=== PATIENT | male | born 1950 | race Caucasian/White ===

== ENCOUNTER 2021-05-06 06:40 | Outpatient (REF) | payer MEDICARE, SELFPAY ==
[2021-05-06 11:36] LABS: MANUAL DIFF FLAG NO
[2021-05-06 11:49] LABS: Basophils Percent Auto 0.4 % (0-2); Eosinophils Absolute Auto 0.2 X10*3/uL (0.0-0.4); Eosinophils Percent Auto 2.2 % (0-4); Hematocrit 40.8 % (42-52); Hemoglobin 13.6 g/dl (14.0-18.0); Imm Gran Abs Auto 0.03 X10*3/uL (0.00-0.03); Imm Gran Pct Auto 0.4 % (0.0-0.4); Lymphocytes Absolute Auto 2.8 X10*3/uL (1.2-4.9); Lymphocytes Percent Auto 37.6 % (20-40); Mean Corpuscular HGB Conc 33.3 g/dl (31.0-36.0); Mean Corpuscular Hemoglobin 30.1 pg (27.0-33.0); Mean Corpuscular Volume 90.3 fL (80-98); Mean Platelet Volume 9.8 fL (9.4-12.4); Monocytes Absolute Auto 0.7 X10*3/uL (0.1-1.2); Monocytes Percent Auto 9.4 % (2-11); Neutrophils Absolute Auto 3.7 X10*3/uL (2.0-8.3); Platelet Count 287 X10*3/uL (160-400); Red Blood Count 4.52 X10*6/uL (4.60-5.80); Red Cell Distribution Width 13.6 % (11.0-16.0); White Blood Count 7.3 X10*3/uL (4.8-10.8)
[2021-05-06 12:07] LABS: Alanine Aminotransferase 23 U/L (0-40); Alkaline Phosphatase 57 U/L (39-117); Anion Gap 13 (12-20); Aspartate Amino Transferase 22 U/L (5-37); Bilirubin Total 0.5 mg/dL (0.0-1.0); Blood Urea Nitrogen 19 mg/dL (9-16); Calcium 9.2 mg/dL (8.4-10.2); Carbon Dioxide 26 mmol/L (22-29); Chloride 107 mmol/L (96-108); Cholesterol 90 mg/dL; Estimated Glomerular Filt Rate > 60; Glucose Fasting 110 mg/dL (60-99); HDL Cholesterol 53 mg/dL; LDL Cholesterol Calculated 21 mg/dl; Potassium 4.6 mmol/L (3.3-5.1); Sodium 141 mmol/L (135-145); Total Protein 6.7 g/dL (6.5-8.0); Triglycerides 84 mg/dL
[2021-05-06 12:30] LABS: Thyroid Stimulating Hormone 2.84 uIU/mL (0.32-4.0)
[2021-05-06 13:24] LABS: Estimated Average Glucose 117 mg/dL; Hemoglobin A1C 138.1488 umol/L; Hemoglobin A1c % 5.7 %
== END 2021-05-06 06:41 | disposition home or self-care (01) ==
LOC: HO.HMGCLDS 06:40
PROVIDERS: PCP Internal Medicine; Visit Provider Internal Medicine
DX: Z00.00 Encounter for general adult medical examination without abnormal findings (principal); M10.9 Gout, unspecified; E11.9 Type 2 diabetes mellitus without complications; E03.9 Hypothyroidism, unspecified
CPT/HCPCS: 36415; 80053; 80061; 83036; 84443; 84550; 85025

== ENCOUNTER → 2021-07-22 10:26 | Outpatient (BNVA) | payer MEDICARE, SELFPAY | PROVIDERS: PCP Internal Medicine | DX: R35.1 Nocturia (principal) | CPT/HCPCS: 51798; 99202 ==

== ENCOUNTER 2021-12-09 06:04 | Outpatient (REF) | payer MEDICARE, SELFPAY ==
[2021-12-09 11:43] LABS: Estimated Average Glucose 117 mg/dL; Hemoglobin A1c % 5.7 %
[2021-12-09 11:48] LABS: Cholesterol 82 mg/dL; HDL Cholesterol 46 mg/dL; LDL Cholesterol Calculated 15 mg/dl; Triglycerides 107 mg/dL
[2021-12-09 11:55] LABS: Glucose Fasting 115 mg/dL (60-99)
[2021-12-09 12:10] LABS: Prostate Specific Antigen 0.76 ng/mL (<0.05-4.0); Thyroid Stimulating Hormone 3.03 uIU/mL (0.32-4.0)
== END 2021-12-09 06:05 | disposition home or self-care (01) ==
LOC: HO.HMGCLDS 06:04
PROVIDERS: PCP Internal Medicine; Visit Provider Internal Medicine
DX: E11.65 Type 2 diabetes mellitus with hyperglycemia (principal); E03.9 Hypothyroidism, unspecified; R35.1 Nocturia; Z12.5 Encounter for screening for malignant neoplasm of prostate
CPT/HCPCS: 36415; 80061; 82947; 83036; 84153; 84443

== ENCOUNTER → 2021-12-19 10:58 | Outpatient (BNVA) | payer MEDICARE, SELFPAY | PROVIDERS: PCP Internal Medicine; Visit Provider Urology | DX: R35.1 Nocturia (principal); R39.12 Poor urinary stream | CPT/HCPCS: 51798; 99212 ==

== ENCOUNTER 2022-04-16 06:49 | Outpatient (REF) | payer MEDICARE, SELFPAY ==
[2022-04-16 11:24] LABS: MANUAL DIFF FLAG NO
[2022-04-16 11:36] LABS: Basophils Absolute Auto 0.1 X10*3/uL (0.0-0.2); Basophils Percent Auto 0.7 % (0-2); Eosinophils Absolute Auto 0.1 X10*3/uL (0.0-0.4); Eosinophils Percent Auto 1.3 % (0-4); Hematocrit 40.9 % (42.0-52.0); Hemoglobin 13.7 g/dl (14.0-18.0); Imm Gran Abs Auto 0.02 X10*3/uL (0.00-0.03); Imm Gran Pct Auto 0.3 % (0.0-0.4); Lymphocytes Absolute Auto 2.5 X10*3/uL (1.2-4.9); Lymphocytes Percent Auto 35.9 % (20-40); Mean Corpuscular HGB Conc 33.5 g/dl (31.0-36.0); Mean Corpuscular Hemoglobin 30.6 pg (27.0-33.0); Mean Corpuscular Volume 91.5 fL (80.0-98.0); Mean Platelet Volume 10.6 fL (9.4-12.4); Monocytes Absolute Auto 0.7 X10*3/uL (0.1-1.2); Monocytes Percent Auto 9.4 % (2-11); Neutrophils Absolute Auto 3.7 x10*3/uL (2.0-8.3); Neutrophils Percent Auto 52.4 % (45-73); Platelet Count 266 X10*3/uL (160-400); Red Blood Count 4.47 X10*6/uL (4.60-5.80); Red Cell Distribution Width 12.8 % (11.0-16.0)
[2022-04-16 11:58] LABS: Alanine Aminotransferase 14 U/L (0-40); Albumin Level 3.9 g/dL (3.5-5.0); Alkaline Phosphatase 59 U/L (39-117); Anion Gap 15 (12-20); Aspartate Amino Transferase 15 U/L (5-37); Bilirubin Total 0.4 mg/dL (0.0-1.0); Blood Urea Nitrogen 20 mg/dL (9-16); Calcium 9.2 mg/dL (8.4-10.2); Carbon Dioxide 26 mmol/L (22-29); Chloride 106 mmol/L (96-108); Cholesterol 123 mg/dL; Estimated Glomerular Filt Rate > 60; Glucose Fasting 113 mg/dL (60-99); HDL Cholesterol 45 mg/dL; LDL Cholesterol Calculated 43 mg/dl; Potassium 4.8 mmol/L (3.3-5.1); Sodium 142 mmol/L (135-145); Total Protein 6.8 g/dL (6.5-8.0); Triglycerides 176 mg/dL
[2022-04-16 11:59] LABS: Thyroid Stimulating Hormone 2.23 uIU/mL (0.32-4.0)
== END 2022-04-16 06:50 | disposition home or self-care (01) ==
LOC: HO.HMGCLDS 06:49
PROVIDERS: PCP Internal Medicine; Visit Provider Internal Medicine
DX: Z00.00 Encounter for general adult medical examination without abnormal findings (principal); Z13.0 Encounter for screening for diseases of the blood and blood-forming organs and certain disorders involving the immune mechanism
CPT/HCPCS: 36415; 80053; 80061; 84443; 85025

== ENCOUNTER → 2022-06-24 10:29 | Outpatient (REF) | payer MEDICARE, SELFPAY ==
--- NOTE | 2022-06-24 11:13 | ECG_ITS ---
Test Reason : cp Blood Pressure : / mmHG Vent. Rate : 060 BPM Atrial Rate : 060 BPM P-R Int : 184 ms QRS Dur : 088 ms QT Int : 406 ms P-R-T Axes : 024 039 040 degrees QTc Int : 406 ms Normal sinus rhythm Normal ECG No previous ECGs available Referred By: José Miguel Walton Electronically Signed By:JIMENEZ POPE MD
== END ==
LOC: HO.CARD 10:29
PROVIDERS: Absent Provider Internal Medicine; PCP Internal Medicine; Visit Provider Urology
DX: R07.9 Chest pain, unspecified (principal); R39.12 Poor urinary stream; N32.81 Overactive bladder
CPT/HCPCS: 51798; 93005; 99212

== ENCOUNTER → 2022-11-11 14:09 | Outpatient (BNVA) | payer MEDICARE, SELFPAY | PROVIDERS: PCP Internal Medicine; Visit Provider Internal Medicine Cardiovascular Disease | DX: R00.2 Palpitations (principal) | CPT/HCPCS: 99202 ==

== ENCOUNTER → 2022-11-23 08:54 | Outpatient (REF) | payer MEDICARE, SELFPAY ==
--- NOTE | 2022-11-23 09:02 | CA_ITS ---
Transthoracic Echocardiogram Patient (Last, First, Middle): Oliver Childers, Gender: Male Date of : 1950 Age: 72 Procedure Date: 11/23/2022 Procedure Type: Transthoracic Echocardiogram Location: OP Height: 177.8 cm Weight: 108.86 kg BSA: 2.26 m2 Heart Rate: 56 bpm BP: 110 / 60 mmHg Preboarder: ADRIANNE Referring MD: Ej Keating MD Symptoms: R00.2 - Palpitations Study Quality: Fair ECG Rhythm: Bradycardia Conclusions: - The left ventricular systolic function is normal. The calculated ejection fraction is 62% by biplane method. - No obvious valvular pathology seen on this study. Findings Left Ventricle Normal left ventricular cavity size. The left ventricular systolic function is normal. The calculated ejection fraction is 62% by biplane method. There is no evidence of regional wall motion abnormalities. Diastolic function is normal for age. There is mild septal asymmetric hypertrophy. Right Ventricle Normal right ventricular cavity size and systolic function. Atria Both atria are normal in size. Aortic Valve There is a normal trileaflet aortic valve. There is mild calcification of the aortic valve. There is no aortic valve stenosis. There is trace (trivial) aortic valve regurgitation. Mitral Valve The mitral valve appears normal. There is no mitral valve regurgitation. There is no mitral valve stenosis. Pulmonic Valve The pulmonic valve was not well visualized. Tricuspid Valve There is no tricuspid valve regurgitation. Tricuspid regurgitation envelope is inadequate for calculation of right ventricular systolic pressure. Great Vessels The asc aorta is normal in size. Venous The inferior vena cava is normal in size and collapses greater than 50% with inspiration. Pericardium/Pleural There is no evidence of pericardial effusion. Prior Study Comparison No prior study available for comparison. Recommendations, Care & Conclusions No obvious valvular pathology seen on this study. Measurements 2D Linear Measurements IVSd: 1.13 0.6-0.9/0.6-1.0 cm LVIDd: 5.22 3.9-5.3/4.2-5.9 cm LVIDd Index: 2.31 2.4-3.2/2.2-3.1 cm/m2 LVIDs: 3.80 2.0-3.6 cm LVPWd: 0.81 0.7-1.1 cm LA Diam: 3.00 2.7-3.8/3.0-4.0 cm LAIDs Index: 1.33 1.5-2.3 cm/m2 LV Mass: 234.14 67-162/88-224 g LV Mass Index: 103.60 43-95/49-115 g/m2 LVOT Diam: 2.10 3.0+(-)1.3 cm 2D Systolic Function EF 4C: 61.50 >55% EF 2C: 63.00 >55% EF BiP: 61.90 >55% Mitral Valve MV Pk E: 0.70 MV PK A: 0.88 MV Decel Time: 313.00 E/A: 0.80 E'Lateral: 9.14 E'Medial: 7.72 E/E' Med: 9.00 E/E' Lat: 7.60 PHT: 92.00 MVA PHT: 2.[address] [place]: 2.23 Aortic Valve AoV Pk Ronaldo: 1.10 AoV Mn Ronaldo: 0.75 AoV VTI: 0.25 AoV Pk Grad: 5.00 Aov Mn Grad: 3.00 SALONI Cont.VTI: 2.69 LVOT LVOT Pk Ronaldo: 0.86 LVOT Mn Ronaldo: 0.55 LVOT VTI: 0.20 LVOT Pk Grad: 3.00 LVOT Mn Grad: 1.00 LVOT Diam: 2.10 LVOT Area: 3.46 Diastolic Function MV Pk E: 0.70 MV Pk A: 0.88 E/A: 0.80 E'Medial: 7.72 E/E' Med: 9.00 E' Laterial: 9.14 E/E' Lat: 7.60 Right Ventricle TAPSE (mm): 29.00 TVS' Ronaldo: 13.50 Tricuspid Valve RA Press: 3.00 Great Vessels Aorta Sinus of Valsalva: 4.00 2.0-3.5 cm Ao Asc: 3.50 2.1-3.4 cm Updated in Other Vendor System with Status of Final Binh Hayden MD electronically signed on 11/24/2022 12:30:46 PM with status of Final
--- NOTE | 2022-11-23 09:02 | HM_ITS ---
* Total monitoring time 7 days. * Underlying rhythm is sinus. Average ventricular rate 60/Min. Range 49 to 96/Min. * Rare supraventricular ectopy. Low burden. Brief runs noted. * Rare ventricular ectopy. Low burden. One short run of 6 beats at 112/min. * No pauses or AV blocks. * Patient markers used in association with sinus rhythm and PVC. Flutter in diary correlate with isolated PVC. Another episode of flutter correlates with sinus. Chest tightness correlates with sinus rhythm. MTDD
--- NOTE | 2022-11-23 09:02 | CA_ITS ---
Acquisition Time: 2022-11-23 10:06:59 Total Exercise Time: 00:06:38 Test Indications: CP Medications: ASA METOPROLOL LISINOPRIL HCTZ Protocol: ALFREDO Max HR: 116 BPM 78% of Pred: 147 BPM Max BP: 130/070 mmHG Max Work Load: 7.9 METS Exercise stress test with exercise 6 min 38 sec of Alfredo protocol, achieving 75% MPHR, with leg and arm fatigue and need to stop, without anginal symptoms, with one PAC, with normotensive response to exercise, without EKG changes of ischemia at achieved workload. Test reviewed with Dr Hayden Referred By: Ej Keating Overread By: GAY PAZ
== END ==
LOC: HO.CARD 08:54
PROVIDERS: Visit Provider Internal Medicine Cardiovascular Disease
DX: R00.2 Palpitations (principal)
CPT/HCPCS: 93017; 93242; 93306

== ENCOUNTER 2022-12-02 06:37 | Outpatient (REF) | payer MEDICARE, SELFPAY ==
[2022-12-02 11:55] LABS: Estimated Average Glucose 120 mg/dL; Hemoglobin A1c % 5.8 %
[2022-12-02 12:09] LABS: Thyroid Stimulating Hormone 2.43 uIU/mL (0.32-4.0)
[2022-12-02 12:34] LABS: Creatinine Urine 106.86 mg/dL; Microalbum/Creatinine Ratio Ur 10.2 ug/mg cr
== END 2022-12-02 06:38 | disposition home or self-care (01) ==
LOC: HO.HMGCLDS 06:37
PROVIDERS: PCP Internal Medicine; Visit Provider Internal Medicine
DX: E11.69 Type 2 diabetes mellitus with other specified complication (principal); E03.9 Hypothyroidism, unspecified; E66.01 Morbid (severe) obesity due to excess calories
CPT/HCPCS: 36415; 82043; 83036; 84443

== ENCOUNTER → 2022-12-22 09:51 | Outpatient (REF) | payer MEDICARE, SELFPAY ==
--- NOTE | ~2022-12-22 | NM_ITS ---
Lexiscan Myocardial perfusion study Indication: Chest pain, assess for coronary disease, ischemia Technique: The patient was brought in for a Lexiscan perfusion study on 12/22/2022 and was injected 0.4 mg of Lexiscan intravenously. Within a minute of this injection 40 mCi of sestamibi was given intravenously. Images were obtained using the SPECT gamma camera interlaced with the gating device. Images were obtained in supine position. Resting perfusion study was performed on 12/23/2022. Patient was administered 40 mCi of sestamibi intravenously at rest. Images were then obtained in supine position. Images were processed with the software and compared side to side in short axis, horizontal long axis and vertical long axis views. Total DLP 188mGy-cm. Findings: Raw acquisition reviewed. Arms by the patient's side. The stress perfusion study showed mildly diminished tracer uptake in the distal part of inferolateral wall. With CT attenuation correction, there is improvement suggestive of diaphragmatic attenuation artifact. The gated study shows normal LV systolic function with calculated LVEF of 56%. LV cavity is normal in size. The gated study shows normal wall thickening and contraction of segments. Resting study shows mildly diminished tracer uptake in the distal anterior wall. There is improvement with CT attenuation correction suggestive of soft tissue attenuation. Gating at rest reveals normal wall motion with ejection fraction at 55%. The findings are consistent with mild reversible distal inferolateral defect; probably artifactual. NM/NM cardiolite stress test Impression: 1. Myocardial perfusion imaging study shows no clear evidence of any ischemia or infarction. Probably normal perfusion. 2. Gated LVEF is 56% during stress; 55% during rest. 3. Transient ischemic dilatation not present. EKG component of the test reported separately.
--- NOTE | 2022-12-22 09:54 | CA_ITS ---
Acquisition Time: 2022-12-22 10:06:04 Total Exercise Time: 00:07:40 Test Indications: palpitations Medications: Protocol: ALFREDO Max HR: 117 BPM 79% of Pred: 147 BPM Max BP: 132/064 mmHG Max Work Load: 9.5 METS Exercise stress test with exercise 7 min 40 sec of Alfredo protocol, achieving 77% MPHR, with leg fatigue and sob requesting to stop, no chest discomfort, without arrythmia, with normotensive response to exercise, without ischemic changes at achieved workload. Treadmill placed in recovery and slowed to 1 MPH. Testing changed to a pharmacological stress test with Lexiscan injection, without anginal symptoms, without arrythmia, with normotensive response to injection, with EKG changes noted inferiorly and V3-V6 meeting criteria for ischemia - which was during the recovery period of exercise and post injection, with gradual improvement. Nuclear images pending. Test reviewed with Dr Cervantes Referred By: Laila Guadarrama Overread By: LAILA GUADARRAMA
== END ==
LOC: HO.CARD 09:51
PROVIDERS: PCP Internal Medicine; Visit Provider Nurse Practitioner Family
DX: R00.2 Palpitations (principal); R94.39 Abnormal result of other cardiovascular function study
CPT/HCPCS: 78452; 93017; A9500; J0280; J2785

== ENCOUNTER → 2022-12-31 09:35 | Outpatient (BNVA) | payer MEDICARE, SELFPAY | PROVIDERS: PCP Internal Medicine; Visit Provider Urology | DX: N32.81 Overactive bladder (principal); R39.12 Poor urinary stream; Z79.899 Other long term (current) drug therapy | CPT/HCPCS: 51798; 99212 ==

== ENCOUNTER → 2023-01-05 11:26 | Outpatient (BNVA) | payer MEDICARE, SELFPAY | PROVIDERS: PCP Internal Medicine; Referring Provider Internal Medicine; Visit Provider Internal Medicine Cardiovascular Disease | DX: I49.3 Ventricular premature depolarization (principal); I10 Essential (primary) hypertension; E78.5 Hyperlipidemia, unspecified; E66.9 Obesity, unspecified; Z68.35 Body mass index [BMI] 35.0-35.9, adult; Z79.82 Long term (current) use of aspirin | CPT/HCPCS: 99212 ==

== ENCOUNTER 2023-03-26 13:29 | Outpatient (AMB) | payer MEDICARE, SELFPAY ==
--- NOTE | 2023-03-26 13:32 | MHC.PC.OV ---
Vital Signs 03/26/23 13:33 Height 5 ft 10 in Weight 237 lb BMI 34.0 BP 120/70 Blood Pressure Location Lt brachial Position Sitting Pulse 62 Pulse Source Pulse Oximeter Pulse Oximetry (%) 97 Oxygen Delivery Method Room Air Intake Visit Reasons: Left hip pain Intake Note: Patient is here today for left hip pain Director Of Vocational Guidance Required: No Baggage Security Checker: Not Required per policy Accompanied by: Self / Same As Patient Allergies No Known Allergies Allergy (Verified 03/26/23 13:32) Medication List - Last Reconciled 03/26/23 by José Miguel Walton MD aspirin (Adult Low Dose Aspirin) 81 mg PO .weekly cholecalciferol (vitamin D3) 25 mcg PO .3 times a week coenzyme Q10 (Ultra CoQ10) 75 mg PO .weekly colchicine 0.6 mg PO DAILY PRN hydrochlorothiazide 25 mg PO DAILY levothyroxine 75 mcg PO DAILY lisinopril 20 mg PO BID metoprolol succinate ER 25 mg PO BID oxybutynin chloride 5 mg PO Q8H PRN terazosin 10 mg PO BEDTIME 90 days gazjroc-rekv-vpmpr-oreg-capryl 100 mg-150 mg- 50 mg-150 mg caps PO .weekly Tobacco use date assessed: 03/26/23 Fall risk assessment: 1 Fall in past year Last assessed Fall Risk: 03/26/23 Dental Screening Dental Screen Date: 03/26/23 Did you have a dental visit in the last 12 months?: Yes Did you have a dental problem in the last 6 months where you did not have access to dental care?: No Was dental information given to patient?: Patient has dentist HPI Left hip pain HPI Details pain left trochanteric bursa for 2 weeks [facility] Medical History (Updated 01/05/23 @ 12:12 by Ej Keating MD) Gout Hyperlipidemia Hypertension Hypothyroidism Obesity Surgical History (Updated 03/26/23 @ 13:39 by CHHAYA Delacruz) History of dental surgery History of hernia repair History of surgery of head Family History Mother No problems noted. Father No problems noted. Social History Housing: House Patient Tobacco Use Status: Former Tobacco user Tobacco use type: Cigarette e-Cigarette/Vaping Use: Never Used Second Hand Smoke Exposure: No service: No Current occupational status: retired Cognitive needs: No Hearing needs: No Vision needs: Yes Questionnaire PHQ-9 Over the last 2 weeks, how often have you been bothered by any of the following problems? Depression Screening Interpretation: Negative Source: Developed by Drs. Hermilo Martinez, Afsaneh Titus, Ed Bello and colleagues, with an educational kailey from [employer]. Thrive Questionnaire Date Thrive assessed: 12/21/22 Currently or been in a relationship where the following occur: no concerns reported DEYVI-7 AMB Questionnaire DEYVI-7 Date DEYVI - 7 assessed: 12/21/22 Source: Developed by Drs. Hermilo Martinez, Afsaneh Titus, Ed Bello and colleagues, with an educational kailey from [employer]. Review of Systems Const Denies chills, Denies headache(s) and Denies weight loss ENT Denies headache(s) Card Denies chest pain, Denies syncope, Denies irregular heart rhythm and Denies dyspnea Resp Denies chest congestion, Denies cough and Denies dyspnea GI Denies abdominal pain, Denies change in stool character, Denies nausea and Denies vomiting Musc Denies deformity and Denies joint swelling Neuro Denies syncope and Denies headache(s) Physical exam (Primary Care) Vital Signs: Last Vital Signs Pulse 62 03/26/23 13:33 BP 120/70 03/26/23 13:33 Pulse Ox 97 03/26/23 13:33 Oxygen Delivery Method Room Air 03/26/23 13:33 BMI result Body Mass Index 34.0 Tobacco/Smoking Status: Tobacco use Status Tobacco use date assessed 03/26/23 03/26/23 13:40 Patient Tobacco Use Status Former Tobacco user 03/26/23 13:40 Tobacco use type Cigarette 03/26/23 13:40 e-Cigarette/Vaping Use Never Used 03/26/23 13:40 Depression Screening Interpretation: Negative Thrive Assessment: Date of Thrive Assessment Date Thrive assessed 12/21/22 03/26/23 13:40 Currently or been in a relationship where the following occur: no concerns reported Const General: cooperative, comfortable and no acute distress Chest Chest palpation & inspection: normal inspection of the chest Resp Effort & Inspection: normal respiratory effort Auscultation: clear to auscultation bilaterally Percussion: percussion normal Cardio Jugular venous distension: no JVD Rate: regular rate Rhythm: regular rhythm Assessment and Plan Assessment & Plan (1) Trochanteric bursitis: Code(s): M70.60 - Trochanteric bursitis, unspecified hip Plan: xr ice Voltarin cream Salon pas Orders: Orders XR hip LT min 2V Today M25.559 - Pain in unspecified hip Coding Level of Care Code Est Pt Level 3 (73502) Diagnoses Trochanteric bursitis M70.60
[2023-03-26 13:33] VITALS: BP 120/70; PULSE 62; O2SAT 97; BMI 34.0
== END 2023-03-26 13:49 | disposition home or self-care (01) ==
PROVIDERS: PCP Internal Medicine; Visit Provider Internal Medicine
DX: M70.60 Trochanteric bursitis, unspecified hip (principal)
CPT/HCPCS: 99213

== ENCOUNTER 2023-03-26 13:54 | Outpatient (REF) | payer MEDICARE, SELFPAY ==
--- NOTE | ~2023-03-26 | XR_ITS ---
EXAMINATION: XR HIP, LEFT CLINICAL INFORMATION: Pain COMPARISON: None available. TECHNIQUE: Two views of the left hip. FINDINGS: No fracture. Alignment is anatomic. Hip joint space is maintained. Soft tissues are unremarkable. XR/XR hip LT min 2V IMPRESSION: Unremarkable left hip.
== END 2023-03-26 13:55 | disposition home or self-care (01) ==
LOC: HO.XRAY 13:54
PROVIDERS: Visit Provider Internal Medicine
DX: M25.552 Pain in left hip (principal)
CPT/HCPCS: 73502

== ENCOUNTER 2023-05-06 10:05 | Outpatient (AMB) | payer MEDICARE, SELFPAY ==
--- NOTE | 2023-05-06 10:13 | MHC.OFFVIS ---
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 No hx of injections. No hx of Injury. No hx of PT. Patient reports ongoing pain for many years. He states that his pain is on the lateral aspect of the hip. His pain is worse when he performs any movements that involve ?turning to the left?. He denies any numbness or tingling radiating down his leg. The patient states that he used to run for exercise. He has recently begun walking for exercise. He does not routinely stretch. Allergies No Known Allergies Allergy (Verified 05/06/23 10:16) Medication List - Last Reconciled 05/07/23 by Steven Romero MD aspirin (Adult Low Dose Aspirin) 81 mg PO .weekly cholecalciferol (vitamin D3) 25 mcg PO .3 times a week coenzyme Q10 (Ultra CoQ10) 75 mg PO .weekly colchicine (gout) 0.6 mg PO DAILY PRN hydrochlorothiazide 25 mg PO DAILY levothyroxine 75 mcg PO DAILY lisinopril 20 mg PO BID metoprolol succinate ER 25 mg PO BID nirmatrelvir-ritonavir 300 mg (150 mg x 2)-100 mg (Paxlovid) 3 ea PO PER PKG DIR 5 days oxybutynin chloride 5 mg PO Q8H PRN terazosin 10 mg PO BEDTIME 90 days juutsgc-wafg-wwwrv-oreg-capryl 100 mg-150 mg- 50 mg-150 mg caps PO .weekly [facility] Medical History (Updated 05/07/23 @ 07:29 by Steven Romero MD) Obesity Gout Hypothyroidism Hyperlipidemia Hypertension Surgical History (Updated 03/26/23 @ 13:39 by CHHAYA Delacruz) History of surgery of head History of dental surgery History of hernia repair Family History Mother No problems noted. Father No problems noted. Social History Housing: House Patient Tobacco Use Status: Former Tobacco user Tobacco use type: Cigarette e-Cigarette/Vaping Use: Never Used Second Hand Smoke Exposure: No service: No Current occupational status: retired Cognitive needs: No Hearing needs: No Vision needs: Yes Physical Exam Vital Signs: BMI result Body Mass Index 34.0 Const Other: Well-nourished well-developed very friendly male awake alert and oriented x3 in no acute distress Extrem Other: Bilateral lower extremity examination shows good capillary refill, no skin lesions noted, normal sensation light touch Left hip examination shows slightly decreased range of motion when compared to his right hip, tenderness over his bursa, mild discomfort with range of motion, negative straight leg raise test Results Reviewed Results Reviewed: X-rays of the patient's left hip show mild to moderate diffuse joint space narrowing, no acute bony abnormalities Assessment & Plan Assessment & Plan (1) Left hip pain: Code(s): M25.552 - Pain in left hip Plan: Mr. Childers presents with left hip pain most likely due to early degenerative joint disease as well as greater trochanteric bursitis and iliotibial band syndrome. I had a lengthy discussion with the patient regarding the treatment options. We will hold off on a cortisone injection at this time. The patient is encouraged to stretch before and after he goes for walks. He does not wish to go to formal physical therapy for now. He will follow up with me on an as-needed basis should his symptoms not plateau at an unacceptable level over the next few months. Feel free to call me at any time should questions regarding his orthopedic management arise. Thank you very much for asking me to see this very friendly gentleman. I spent 22 minutes in reviewing the patient's records and imaging studies, seeing the patient and documenting in the medical record. Coding Level of Care Code New Pt Level 2 (17086) Diagnoses Left hip pain M25.552
[2023-05-06 10:17] VITALS: BMI 34.0
== END 2023-05-06 10:46 | disposition home or self-care (01) ==
PROVIDERS: PCP Internal Medicine; Visit Provider Orthopaedic Surgery
DX: M25.552 Pain in left hip (principal)
CPT/HCPCS: 99202

== ENCOUNTER → 2023-05-06 10:05 | Outpatient (BNVA) | payer MEDICARE, SELFPAY | PROVIDERS: PCP Internal Medicine; Visit Provider Orthopaedic Surgery | DX: M25.552 Pain in left hip (principal) | CPT/HCPCS: 99202 ==

== ENCOUNTER 2023-06-17 08:56 | Outpatient (REF) | payer MEDICARE, SELFPAY ==
[2023-06-17 11:07] LABS: MANUAL DIFF FLAG NO
[2023-06-17 11:29] LABS: Basophils Absolute Auto 0.1 X10*3/uL (0.0-0.2); Basophils Percent Auto 0.7 % (0-2); Eosinophils Absolute Auto 0.1 X10*3/uL (0.0-0.4); Eosinophils Percent Auto 0.9 % (0-4); Hematocrit 38.6 % (42.0-52.0); Hemoglobin 12.9 g/dl (14.0-18.0); Imm Gran Abs Auto 0.02 X10*3/uL (0.00-0.03); Imm Gran Pct Auto 0.3 % (0.0-0.4); Lymphocytes Absolute Auto 2.3 X10*3/uL (1.2-4.9); Lymphocytes Percent Auto 34.3 % (20-40); Mean Corpuscular HGB Conc 33.4 g/dl (31.0-36.0); Mean Corpuscular Hemoglobin 30.6 pg (27.0-33.0); Mean Corpuscular Volume 91.5 fL (80.0-98.0); Mean Platelet Volume 10.3 fL (9.4-12.4); Monocytes Absolute Auto 0.6 X10*3/uL (0.1-1.2); Monocytes Percent Auto 8.6 % (2-11); Neutrophils Absolute Auto 3.7 x10*3/uL (2.0-8.3); Neutrophils Percent Auto 55.2 % (45-73); Platelet Count 243 X10*3/uL (160-400); Red Blood Count 4.22 X10*6/uL (4.60-5.80); Red Cell Distribution Width 13.6 % (11.0-16.0); White Blood Count 6.8 X10*3/uL (4.8-10.8)
[2023-06-17 11:32] LABS: Estimated Average Glucose 108 mg/dL; Hemoglobin A1c % 5.4 % (<6.0)
[2023-06-17 13:09] LABS: Alanine Aminotransferase 14 U/L (0-40); Albumin Level 3.9 g/dL (3.5-5.0); Alkaline Phosphatase 49 U/L (39-117); Anion Gap 12 (12-20); Aspartate Amino Transferase 17 U/L (5-37); Bilirubin Total 0.5 mg/dL (0.0-1.0); Blood Urea Nitrogen 24 mg/dL (9-16); Calcium 9.4 mg/dL (8.4-10.2); Carbon Dioxide 24 mmol/L (22-29); Chloride 106 mmol/L (96-108); Cholesterol 120 mg/dL (<200); Estimated Glomerular Filt Rate > 60; Glucose Fasting 98 mg/dL (60-99); HDL Cholesterol 51 mg/dL (>40); LDL Cholesterol Calculated 48 mg/dL (<100); Potassium 4.4 mmol/L (3.3-5.1); Sodium 138 mmol/L (135-145); Triglycerides 106 mg/dL (<150)
== END 2023-06-17 08:57 | disposition home or self-care (01) ==
LOC: HO.HMGCLDS 08:56
PROVIDERS: PCP Internal Medicine; Visit Provider Internal Medicine
DX: N28.9 Disorder of kidney and ureter, unspecified (principal); R73.9 Hyperglycemia, unspecified; D64.9 Anemia, unspecified; E78.5 Hyperlipidemia, unspecified
CPT/HCPCS: 36415; 80053; 80061; 83036; 85025

== ENCOUNTER 2023-06-23 09:59 | Outpatient (AMB) | payer MEDICARE, SELFPAY ==
--- NOTE | 2023-06-23 10:00 | A.OFFPC_ITS ---
Vital Signs 06/23/23 10:01 Height 5 ft 10 in Weight 241 lb BMI 34.6 BP 118/68 Blood Pressure Location Lt brachial Position Sitting Pulse 65 Pulse Source Pulse Oximeter Pulse Oximetry (%) 98 Oxygen Delivery Method Room Air Intake Visit Reasons: Annual Exam Heel Stainer Required: No Accompanied by: Self / Same As Patient Allergies No Known Allergies Allergy (Verified 06/23/23 10:01) Medication List - Last Reconciled 06/23/23 by José Miguel Walton MD aspirin (Adult Low Dose Aspirin) 81 mg PO .weekly cholecalciferol (vitamin D3) 25 mcg PO .3 times a week coenzyme Q10 (Ultra CoQ10) 75 mg PO .weekly colchicine (gout) 0.6 mg PO DAILY PRN hydrochlorothiazide 25 mg PO DAILY levothyroxine 75 mcg PO DAILY lisinopril 20 mg PO BID metoprolol succinate ER 25 mg PO BID oxybutynin chloride 5 mg PO Q8H PRN terazosin 10 mg PO BEDTIME 90 days icpqsqt-cpwm-lsnwk-oreg-capryl 100 mg-150 mg- 50 mg-150 mg caps PO .weekly Tobacco use date assessed: 03/26/23 Fall risk assessment: 1 Fall in past year Last assessed Fall Risk: 06/23/23 Dental Screening Dental Screen Date: 06/23/23 Did you have a dental visit in the last 12 months?: Yes Did you have a dental problem in the last 6 months where you did not have access to dental care?: No Was dental information given to patient?: Patient has dentist HPI Annual Exam HPI Details gout HTN and hypothyroidism; doing well on rx PFSH Medical History Obesity 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 Father No problems noted. Social History Housing: House Patient Tobacco Use Status: Former Tobacco user Tobacco use type: Cigarette e-Cigarette/Vaping Use: Never Used Second Hand Smoke Exposure: No service: No Current occupational status: retired Cognitive needs: No Hearing needs: No Vision needs: Yes Questionnaire PHQ-9 Over the last 2 weeks, how often have you been bothered by any of the following problems? 1. Little interest or pleasure in doing things: not at all 2. Feeling down, depressed, or hopeless: not at all 3. Trouble falling or staying asleep, or sleeping too much: not at all 4. Feeling tired or having little energy: not at all 5. Poor appetite or overeating: not at all 6. Feeling bad about yourself - or that you are a failure or have let yourself or your family down: not at all 7. Trouble concentrating on things, such as reading the newspaper or watching television: not at all 8. Moving or speaking so slowly that other people could have noticed. Or the opposite - being so fidgety or restless that you have been moving around a lot more than usual: not at all 9. Thoughts that you would be better off or of hurting yourself in some way: not at all Total score: 0 Depression Screening Interpretation: Negative Depression Screening Done: Yes [id number] - PHQ-9 Billing: Yes Source: Developed by Drs. Hermilo Martinez, Ed Paz and colleagues, with an educational kailey from [employer]). Thrive Questionnaire Date Thrive assessed: 12/21/22 AUDIT C Alcohol Use Questionnaire (AUDIT-C) 1. How often do you have a drink containing alcohol?: 4 or more times a week 2. How many drinks containing alcohol do you have on a typical day when you are drinking?: 1 or 2 3. How often do you have six or more drinks on one occasion?: Never Total Score: 4 Score Reviewed/Action Taken: Yes DEYVI-7 AMB Questionnaire DEYVI-7 Date DEYVI - 7 assessed: 12/21/22 Source: Developed by Drs. Hermilo Martinez, Ed Paz and colleagues, with an educational kailey from [employer]). Review of Systems Const Denies chills, Denies fatigue, Denies headache(s) and Denies weight loss Eyes Denies change in vision, Denies diplopia and Denies eye pain ENT Denies vertigo, Denies dizziness, Denies headache(s) and Denies nasal discharge Card Denies chest pain, Denies rapid heart rate and Denies dyspnea on exertion Resp Denies chest congestion, Denies cough, Denies pain with cough and Denies dyspnea on exertion GI Denies abdominal pain, Denies hematochezia and Denies change in bowel habits Musc Denies myalgias, Denies arthralgias and Denies joint swelling Skin/Breast Denies lesions and Denies unusual bruising Neuro Denies vertigo, Denies dizziness, Denies headache(s) and Denies focal weakness Endo Denies fatigue Physical exam (Primary Care) Vital Signs: Last Vital Signs Pulse 65 06/23/23 10:01 BP 118/68 06/23/23 10:01 Pulse Ox 98 06/23/23 10:01 Oxygen Delivery Method Room Air 06/23/23 10:01 BMI result Body Mass Index 34.6 obesity BMI Assessment/Plan discussion: High BMI High, discussed plan: lifestyle, weight reduction, dietary and physical activity Tobacco/Smoking Status: Tobacco use Status Tobacco use date assessed 03/26/23 06/23/23 10:05 Patient Tobacco Use Status Former Tobacco user 06/23/23 10:05 Tobacco use type Cigarette 06/23/23 10:05 e-Cigarette/Vaping Use Never Used 06/23/23 10:05 PHQ-9: PHQ-9 Score PHQ-9: Total score 0 06/23/23 10:05 Depression Screening Interpretation: Negative Thrive Assessment: Date of Thrive Assessment Date Thrive assessed 12/21/22 06/23/23 10:05 Advance Care Planning discussion: On file, no changes Forms completed: Health Care Proxy Const General: cooperative, healthy appearing and no acute distress Orientation/consciousness: oriented to person, oriented to place and oriented to time [facility] Head: Yes normal to inspection, Yes normocephalic and Yes atraumatic Mouth: Normal oral and palatal mucosa present and tongue normal Throat: Yes posterior oropharynx normal and Yes uvula midline Eyes General: appearance normal, both eyes and all related structures Neck Neck: Yes normal visual inspection, Yes full ROM and Yes no lymphadenopathy Thyroid: Thyroid normal Carotids: normal carotid upstroke Chest Chest palpation & inspection: normal inspection of the chest Resp Effort & Inspection: normal respiratory effort and able to speak in complete sentences Auscultation: clear to auscultation bilaterally Cardio Jugular venous distension: no JVD Palpation: normal PMI Rate: regular rate Rhythm: regular rhythm Heart sounds: S1 normal heart sound present and S2 normal heart sound present GI Inspection: Yes normal to inspection Palpation (GI): Soft to palpation and No hepatosplenomegaly present Auscultation: normal bowel sounds General: Yes no CVA tenderness Back/Spine/Pelvis Back: no CVA tenderness Skin General skin exam: no rashes or lesions noted Neuro General: oriented to person, oriented to place and oriented to time Extrem General: Yes normal to inspection and Yes full ROM Assessment and Plan Assessment & Plan (1) Physical exam: Code(s): Z00.00 - Encounter for general adult medical examination without abnormal findings Plan: stable; same rx (2) Hypertension: Code(s): I10 - Essential (primary) hypertension Plan: stable; same rx (3) Hypothyroidism: Code(s): E03.9 - Hypothyroidism, unspecified Plan: stable; same rx (4) Gout: Code(s): M10.9 - Gout, unspecified (5) Obesity: Code(s): E66.9 - Obesity, unspecified Plan: as above Coding Level of Care Code Est Pt Prev Care >65y(15479) Diagnoses Physical exam Z00.00 Hypertension I10 Hypothyroidism E03.9 Gout M10.9 Obesity E66.9 Additional Codes Vital Signs *Quality* - Advance Care Planning discussion: On file, no changes ([id number])
[2023-06-23 10:01] VITALS: BP 118/68; PULSE 65; O2SAT 98; BMI 34.6
== END 2023-06-23 10:18 | disposition home or self-care (01) ==
PROVIDERS: Visit Provider Internal Medicine
DX: Z00.00 Encounter for general adult medical examination without abnormal findings (principal); I10 Essential (primary) hypertension; E03.9 Hypothyroidism, unspecified; M10.9 Gout, unspecified; E66.9 Obesity, unspecified
CPT/HCPCS: 1123F; 99397

== ENCOUNTER 2023-07-01 09:48 | Outpatient (AMB) | payer MEDICARE, SELFPAY ==
--- NOTE | 2023-07-01 09:55 | MHC.OFFVIS ---
Intake Intake Visit Reasons: 6m follow up Intake Note: Patient is present for OAB/PVR Urology Medications: Terazosin Antibiotic Allergy: None Blood Thinner: Aspirin PVR: 0ml's Personal Care Service Provider Required: No Accompanied by: Self / Same As Patient Allergies No Known Allergies Allergy (Verified 07/01/23 10:00) HPI HPI Comments History of Present Illness Details Oliver is a pleasant male. He is a patient of Dr. Kraft. He seen for the following urologic conditions - lower urinary tract symptoms Continues with terazosin 10 mg Discussed timing medication Is using oxybutynin p.r.n. 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 Father No problems noted. Social History Housing: House Patient Tobacco Use Status: Former Tobacco user Tobacco use type: Cigarette e-Cigarette/Vaping Use: Never Used Second Hand Smoke Exposure: No service: No Current occupational status: retired Cognitive needs: No Hearing needs: No Vision needs: Yes Review of Systems Const Denies chills and Denies fever(s) Card Reports no additional complaints and Denies syncope Resp Denies cough GI Denies abdominal pain and Denies heartburn Reports as per HPI and Denies change in libido Neuro Denies syncope Psych Denies change in libido Endo Denies change in libido Physical Exam Const General: cooperative, healthy appearing, comfortable and no acute distress Orientation/consciousness: patient oriented x3 HEENT Face and sinus: Yes normal facial exam Mouth: moist mucous membranes Neck Neck: Yes normal visual inspection, Yes full ROM and Yes trachea midline Chest Chest palpation & inspection: normal inspection of the chest Resp Effort & Inspection: normal respiratory effort, able to speak in complete sentences and no respiratory distress GI Inspection: Yes normal to inspection Back/Spine/Pelvis Cervical Spine: normal cervical lordosis Thoracic/Lumbar Spine: thoracic and lumbar spine normal to inspection Skin General skin exam: no rashes or lesions noted Neuro General: patient oriented x3, gait normal, tone normal and moves all extremities Extrem General: Yes normal to inspection and Yes capillary refill normal Office Procedures Post Void Residual Post Residual Void Post Void Residual (PVR): 0 [id number] Void Residual by ultrasound Results AMB Urinalysis, Automated UA Leukoctes 0 Lidia/uL Last Edit by [employer] on 07/01/23 10:11 UA Nitrite Negative Last Edit by [employer] on 07/01/23 10:11 UA Urobilinogen 0.2 mg/dL Last Edit by [employer] on 07/01/23 10:11 UA Protein 0 mg/dL Last Edit by [employer] on 07/01/23 10:11 UA pH 6.0 Last Edit by [employer] on 07/01/23 10:11 UA Blood 0 Sriram/uL Last Edit by [employer] on 07/01/23 10:11 UA Specific [place] 1.020 Last Edit by [employer] on 07/01/23 10:11 UA Ketone Negative Last Edit by [employer] on 07/01/23 10:11 UA Bilirubin 0 mg/dL Last Edit by [employer] on 07/01/23 10:11 UA Glucose 0 mg/dL Last Edit by [employer] on 07/01/23 10:11 Results Reviewed Results Reviewed: Laboratory Last Values Urine pH (Auto) 6.0 07/01/23 10:01 Specific [place] (Auto) 1.020 07/01/23 10:01 Urine Protein (Auto) 0 mg/dL 07/01/23 10:01 Glucose (UA)(Auto) 0 mg/dL 07/01/23 10:01 Urine Ketones (Auto) Negative 07/01/23 10:01 Urine Blood (Auto) 0 Sriram/uL 07/01/23 10:01 Urine Nitrite (Auto) Negative 07/01/23 10:01 Urine Bilirubin (Auto) 0 mg/dL 07/01/23 10:01 Urine Urobilinogen (Auto) 0.2 mg/dL 07/01/23 10:01 Leukocyte Esterase (Auto) 0 Lidia/uL 07/01/23 10:01 Assessment & Plan Assessment & Plan (1) Overactive bladder: Code(s): N32.81 - Overactive bladder (2) Nocturia: Code(s): R35.1 - Nocturia Plan Trial tadalafil Orders: Orders AMB Urinalysis Automated Today Z13.9 - Encounter for screening, unspecified AMB Post Void Residual by ultrasound Today N32.81 - Overactive bladder Medications: New tadalafil 5 mg PO DAILY 90 tabs 0RF badder 90 days N32.81 - Overactive bladder Patient Instructions: Imaging studies, laboratory and physical exam results were discussed and reviewed in detail. No major barriers to patient understanding were identified. An opportunity to ask questions regarding the treatment plan was provided. All questions were answered. The patient expressed understanding and agreement with the above treatment plan. The patient is aware they should contact our office by phone for worsening of their current condition or the appearance of new urologic symptoms. Compliance is encouraged with any medications and followup testing that is ordered. It is a privilege to participate in the urologic care of your patient. If you have any questions or concerns regarding treatment for the above conditions, or other urologic issues, please do not hesitate to contact me. The office telephone contact is [phone]. This note is constructed using voice recognition software. While every effort has been made to ensure accuracy manager spa errors may have been included. Yours sincerely, Dr Maciej Shahid MD, ESTRE[facility] - Urology Providers of Expert, Compassionate Care for the Genitourinary System Coding Level of Care Code Est Pt Level 4 (73256) Diagnoses Overactive bladder N32.81 Nocturia R35.1 CPT Codes Post Residual Void - PVR CPT Code: 45252-Qimn Void Residual by ultrasound ([id number])
== END 2023-07-01 10:34 | disposition home or self-care (01) ==
PROVIDERS: Visit Provider Urology
DX: N32.81 Overactive bladder (principal); R35.1 Nocturia; Z13.9 Encounter for screening, unspecified
CPT/HCPCS: 99214

== ENCOUNTER → 2023-07-01 09:48 | Outpatient (BNVA) | payer MEDICARE, SELFPAY | PROVIDERS: Visit Provider Urology | DX: N32.81 Overactive bladder (principal); R35.1 Nocturia | CPT/HCPCS: 51798; 81003; 99212 ==

== ENCOUNTER 2023-08-20 13:27 | Outpatient (AMB) | payer MEDICARE, SELFPAY ==
--- NOTE | 2023-08-20 13:29 | MHC.PC.OV ---
Vital Signs 08/20/23 13:30 Height 5 ft 10 in Weight 247 lb BMI 35.4 BP 130/64 Blood Pressure Location Lt brachial Position Sitting Pulse 54 Pulse Source Pulse Oximeter Pulse Oximetry (%) 9 L Oxygen Delivery Method Room Air Intake Visit Reasons: ?Infection on back Radiologic Technology Teacher Required: No Pals Specialist: Not Required per policy Accompanied by: Self / Same As Patient Allergies No Known Allergies Allergy (Verified 08/20/23 13:30) Tobacco use date assessed: 03/26/23 Fall risk assessment: No Falls in past year Last assessed Fall Risk: 08/20/23 Dental Screening Dental Screen Date: 08/20/23 Did you have a dental visit in the last 12 months?: Yes Did you have a dental problem in the last 6 months where you did not have access to dental care?: No Was dental information given to patient?: Patient has dentist HPI ?Infection on back HPI Details abscess on upper back; needs I+D PFS Medical History Obesity 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 Father No problems noted. Social History Housing: House Patient Tobacco Use Status: Former Tobacco user Tobacco use type: Cigarette e-Cigarette/Vaping Use: Never Used Second Hand Smoke Exposure: No service: No Current occupational status: retired Cognitive needs: No Hearing needs: No Vision needs: Yes Questionnaire Thrive Questionnaire Date Thrive assessed: 12/21/22 DEYVI-7 AMB Questionnaire DEYVI-7 Date DEYVI - 7 assessed: 12/21/22 Source: Developed by Drs. Hermilo Martinez, Afsaneh Titus, Ed Bello and colleagues, with an educational kailey from [employer]. Review of Systems Const Denies chills, Denies headache(s) and Denies weight loss ENT Denies headache(s) Card Denies chest pain, Denies syncope, Denies irregular heart rhythm and Denies dyspnea Resp Denies chest congestion, Denies cough and Denies dyspnea GI Denies abdominal pain, Denies change in stool character, Denies nausea and Denies vomiting Musc Denies deformity and Denies joint swelling Neuro Denies syncope and Denies headache(s) Physical exam (Primary Care) Vital Signs: Last Vital Signs Pulse 54 08/20/23 13:30 BP 130/64 08/20/23 13:30 Pulse Ox 9 L 08/20/23 13:30 Oxygen Delivery Method Room Air 08/20/23 13:30 BMI result Body Mass Index 35.4 Tobacco/Smoking Status: Tobacco use Status Tobacco use date assessed 03/26/23 08/20/23 13:31 Patient Tobacco Use Status Former Tobacco user 08/20/23 13:31 Tobacco use type Cigarette 08/20/23 13:31 e-Cigarette/Vaping Use Never Used 08/20/23 13:31 Thrive Assessment: Date of Thrive Assessment Date Thrive assessed 12/21/22 08/20/23 13:31 Const General: cooperative, comfortable and no acute distress HENMT Head: Yes normal to inspection Eyes General: appearance normal, both eyes and all related structures Neck Neck: Yes normal visual inspection Skin Other: 2 cm abscess upper back Assessment and Plan Assessment & Plan (1) Abscess of skin: Code(s): L02.91 - Cutaneous abscess, unspecified Plan: rx and referral Orders: Referrals General Surgery Referral L02.91 - Cutaneous abscess, unspecified Medications: New cephalexin 250 mg PO Q6H 20 caps 0RF cephalexin 250 mg PO Q6H 20 caps 0RF Coding Level of Care Code Est Pt Level 3 (04282) Diagnoses Abscess of skin L02.91
[2023-08-20 13:30] VITALS: BP 130/64; PULSE 54; O2SAT 9; BMI 35.4
== END 2023-08-20 13:45 | disposition home or self-care (01) ==
PROVIDERS: PCP Internal Medicine; Visit Provider Internal Medicine
DX: L02.91 Cutaneous abscess, unspecified (principal)
CPT/HCPCS: 99213

== ENCOUNTER 2023-09-10 10:08 | Outpatient (AMB) | payer OTHER, SELFPAY ==
--- NOTE | 2023-09-10 10:10 | MHC.OFFVIS ---
Intake Vital Signs 09/10/23 10:17 Height 5 ft 10 in Weight 241 lb BMI 34.6 BP 110/69 Blood Pressure Location Lt brachial Position Sitting Pulse 68 Intake Visit Reasons: abscess upper back Intake Note: Patient referred by pcp Dr. Waltno for abscess on upper back. Patient c/o: enalrging. Patient on cephalexin. Tailor Women'S Garment Alteration Required: No Accompanied by: Self / Same As Patient Allergies No Known Allergies Allergy (Verified 09/10/23 10:18) HPI HPI Comments History of Present Illness Details Patient has a longstanding history of skin lesions and keratosis who presents with an upper back inflamed sebaceous cyst. He was given antibiotics with some improvement. Presents here for follow-up. Chart was reviewed and patient evaluate [facility] Medical History Obesity 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 Father No problems noted. Social History Housing: House Patient Tobacco Use Status: Former Tobacco user Tobacco use type: Cigarette e-Cigarette/Vaping Use: Never Used Second Hand Smoke Exposure: No service: No Current occupational status: retired Cognitive needs: No Hearing needs: No Vision needs: Yes Physical Exam Vital Signs: Last Vital Signs Pulse 68 09/10/23 10:17 BP 110/69 09/10/23 10:17 BMI result Body Mass Index 34.6 Back/Spine/Pelvis Other: Patient has a resolving inflamed upper back what appears to be sebaceous cyst. No evidence of fluctuance or abscess Assessment & Plan Assessment & Plan (1) Inflamed sebaceous cyst: Code(s): L72.3 - Sebaceous cyst Plan Current plan is to continue conservative therapy. Patient has been given local instructions well script antibiotics and he will see me as directed for follow-up or p.r.n.. All questions answered. Patient has progression of symptoms, he may require I&D. If the infective process has completely resolved, arrangements were made for elective excision of this in the office. Coding Level of Care Code New Pt Level 4 (15270) Diagnoses Inflamed sebaceous cyst L72.3
[2023-09-10 10:17] VITALS: BP 110/69; PULSE 68; BMI 34.6
== END 2023-09-10 10:30 | disposition home or self-care (01) ==
PROVIDERS: PCP Internal Medicine; Visit Provider Surgery
DX: L72.3 Sebaceous cyst (principal)
CPT/HCPCS: 99204

== ENCOUNTER → 2023-09-10 10:08 | Outpatient (BNVA) | payer OTHER, SELFPAY | PROVIDERS: PCP Internal Medicine; Visit Provider Surgery ==

== ENCOUNTER 2023-09-20 10:10 | Outpatient (AMB) | payer OTHER, SELFPAY ==
--- NOTE | 2023-09-20 10:12 | A.OFFVIS_ITS ---
Intake Vital Signs 09/20/23 10:18 Height 5 ft 10 in Weight 246 lb BMI 35.3 BP 125/60 Blood Pressure Location Lt brachial Position Sitting Pulse 61 Intake Visit Reasons: abscess upper back, follow up Intake Note: Patient here f/u abscess on upper back. Cephalexin course finished. Patient c/o: redness, tender to touch. 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 He has had marked improvement of his symptoms. He has had minimal drainage according to his who has been undergoing local wound care for him. He completed his antibiotic course. [facility] Medical History Obesity 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 Father No problems noted. Social History Housing: House Patient Tobacco Use Status: Former Tobacco user Tobacco use type: Cigarette e-Cigarette/Vaping Use: Never Used Second Hand Smoke Exposure: No service: No Current occupational status: retired Cognitive needs: No Hearing needs: No Vision needs: Yes Physical Exam Vital Signs: Last Vital Signs Pulse 61 09/20/23 10:18 BP 125/60 09/20/23 10:18 BMI result Body Mass Index 35.3 Back/Spine/Pelvis Other: Marked improvement of upper back infected sebaceous cyst. Erythema nearly resolved. On pressure, minimal output. Dressing applied. Assessment & Plan Assessment & Plan (1) Inflamed sebaceous cyst: Code(s): L72.3 - Sebaceous cyst Plan Patient has been given local instructions and if you would like to have this cyst excised, he will contact me within next 2-3 weeks time. He has any setbacks or concerns, he can call the office or follow-up as needed. All questions answered. Coding Level of Care Code Est Pt Level 4 (14189) Diagnoses Inflamed sebaceous cyst L72.3
[2023-09-20 10:18] VITALS: BP 125/60; PULSE 61; BMI 35.3
== END 2023-09-20 10:25 | disposition home or self-care (01) ==
PROVIDERS: PCP Internal Medicine; Visit Provider Surgery
DX: L72.3 Sebaceous cyst (principal)
CPT/HCPCS: 99214

== ENCOUNTER → 2023-09-20 10:10 | Outpatient (BNVA) | payer OTHER, SELFPAY | PROVIDERS: PCP Internal Medicine; Visit Provider Surgery ==

== ENCOUNTER 2023-10-05 10:07 | Outpatient (AMB) | payer OTHER, SELFPAY ==
--- NOTE | 2023-10-05 10:09 | MHC.OFFVIS ---
Intake Intake Visit Reasons: 3m follow up(OAB) Intake Note: Patient is Present for Telephone Follow Up Medication Review- Tadalafil Urology Med: Tadalafil, Terazosin. (Patient is on oxybutynin as needed) Antibiotic Allergy: None Blood Thinner: Aspirin Allergies No Known Allergies Allergy (Verified 10/05/23 10:10) Medication List - Last Reconciled 10/05/23 by Maciej Shahid MD aspirin (Adult Low Dose Aspirin) 81 mg PO .weekly cholecalciferol (vitamin D3) 25 mcg PO .3 times a week coenzyme Q10 (Ultra CoQ10) 75 mg PO .weekly colchicine 0.6 mg PO DAILY PRN hydrochlorothiazide 25 mg PO DAILY levothyroxine 75 mcg PO DAILY lisinopril 20 mg PO BID metoprolol succinate ER 25 mg PO BID oxybutynin chloride 5 mg PO Q8H PRN tadalafil 5 mg PO DAILY 90 days terazosin 10 mg PO BEDTIME 90 days ecdailu-ojld-bkiqd-oreg-capryl 100 mg-150 mg- 50 mg-150 mg caps PO .weekly HPI HPI Comments History of Present Illness Details Oliver is a pleasant male. He is a patient of Dr. Kraft. 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 Father No problems noted. Social History Housing: House Patient Tobacco Use Status: Former Tobacco user Tobacco use type: Cigarette e-Cigarette/Vaping Use: Never Used Second Hand Smoke Exposure: No service: No Current occupational status: retired Cognitive needs: No Hearing needs: No Vision needs: Yes Review of Systems Const All systems reviewed & are unremarkable except as noted in HPI and below Reports no additional complaints Resp Reports no additional complaints GI Reports no additional complaints Reports as per HPI Musc Reports no additional complaints Physical Exam Telemedicine evaluation Appropriate responses Regular breathing rate and rhythm HEENT Head: Yes normal to inspection Ears: hearing grossly normal bilaterally Eyes General: appearance normal, both eyes and all related structures Neck Neck: Yes normal visual inspection Chest Chest palpation & inspection: normal inspection of the chest Resp Effort & Inspection: normal respiratory effort and able to speak in complete sentences Assessment & Plan Assessment & Plan (1) Nocturia: Code(s): R35.1 - Nocturia (2) Weak urinary stream: Code(s): R39.12 - Poor urinary stream Plan Six-month follow-up Medications: Refilled tadalafil 5 mg PO DAILY 90 days 90 tabs 1RF badder N32.81 - Overactive bladder terazosin 10 mg PO BEDTIME 90 caps 1RF 90 days N32.81 - Overactive bladder Patient Instructions: Imaging studies, laboratory and physical exam results were discussed and reviewed in detail. No major barriers to patient understanding were identified. An opportunity to ask questions regarding the treatment plan was provided. All questions were answered. The patient expressed understanding and agreement with the above treatment plan. The patient is aware they should contact our office by phone for worsening of their current condition or the appearance of new urologic symptoms. Compliance is encouraged with any medications and followup testing that is ordered. It is a privilege to participate in the urologic care of your patient. If you have any questions or concerns regarding treatment for the above conditions, or other urologic issues, please do not hesitate to contact me. The office telephone contact is [phone]. This note is constructed using voice recognition software. While every effort has been made to ensure accuracy snuff packing machine operator errors may have been included. Yours sincerely, Dr Maciej Shahid MD, [facility] - Urology Providers of Expert, Compassionate Care for the Genitourinary System Telehealth Telehealth Location of provider rendering services: practice address Location of patient: address on file Patient Identification confirmed using: Name, : Yes Telehealth method: video Patient verbally consented to treatment: Yes Patient verbally consented to billing insurance company: Yes Patient informed of any privacy concerns related to visit: Yes Coding Level of Care Code Tele Est Pt Level 3 (41616) Diagnoses Nocturia R35.1 Weak urinary stream R39.12
== END 2023-10-05 10:43 | disposition home or self-care (01) ==
LOC: HO.HUSH 10:07
PROVIDERS: PCP Internal Medicine; Visit Provider Urology
DX: R35.1 Nocturia (principal); R39.12 Poor urinary stream
CPT/HCPCS: 99213

== ENCOUNTER → 2023-10-05 10:07 | Outpatient (BNVA) | payer OTHER, SELFPAY | PROVIDERS: PCP Internal Medicine; Visit Provider Urology ==

== ENCOUNTER 2023-11-22 11:24 | Outpatient (AMB) | payer OTHER, SELFPAY ==
[2023-11-22 11:28] VITALS: BP 128/62; PULSE 65; O2SAT 98; BMI 35.4
--- NOTE | 2023-11-22 11:28 | A.OFFPC_ITS ---
Vital Signs 11/22/23 11:28 Height 5 ft 10 in Weight 247 lb BMI 35.4 BP 128/62 Blood Pressure Location Lt brachial Position Sitting Pulse 65 Pulse Source Pulse Oximeter Pulse Oximetry (%) 98 Oxygen Delivery Method Room Air Intake Visit Reasons: infected abscess on back Crew Mess Attendant Required: No Patient Financial Services Specialist: Not Required per policy Accompanied by: Self / Same As Patient Allergies No Known Allergies Allergy (Verified 11/22/23 11:28) Medication List - Last Reconciled 11/22/23 by José Miguel Walton MD aspirin (Adult Low Dose Aspirin) 81 mg PO .weekly cholecalciferol (vitamin D3) 25 mcg PO .3 times a week coenzyme Q10 (Ultra CoQ10) 75 mg PO .weekly colchicine 0.6 mg PO DAILY PRN hydrochlorothiazide 25 mg PO DAILY levothyroxine 75 mcg PO DAILY lisinopril 20 mg PO BID metoprolol succinate ER 50 mg PO DAILY oxybutynin chloride 5 mg PO Q8H PRN tadalafil 5 mg PO DAILY 90 days terazosin 10 mg PO BEDTIME 90 days ayohwlod-slqr-cbbdt-oreg-capry 100 mg-150 mg- 50 mg-150 mg caps PO .weekly Tobacco use date assessed: 11/22/23 Fall risk assessment: 2 + Falls in past year Last assessed Fall Risk: 11/22/23 Dental Screening Dental Screen Date: 11/22/23 Did you have a dental visit in the last 12 months?: Yes Did you have a dental problem in the last 6 months where you did not have access to dental care?: No Was dental information given to patient?: Patient has dentist HPI infected abscess on back HPI Details recurrent abscess on back PFSH Medical History Obesity 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 Father No problems noted. Social History Housing: House Patient Tobacco Use Status: Former Tobacco user Tobacco use type: Cigarette e-Cigarette/Vaping Use: Never Used Second Hand Smoke Exposure: No service: No Current occupational status: retired Cognitive needs: No Hearing needs: No Vision needs: Yes Questionnaire PHQ-9 Over the last 2 weeks, how often have you been bothered by any of the following problems? 1. Little interest or pleasure in doing things: not at all 2. Feeling down, depressed, or hopeless: not at all 3. Trouble falling or staying asleep, or sleeping too much: not at all 4. Feeling tired or having little energy: not at all 5. Poor appetite or overeating: not at all 6. Feeling bad about yourself - or that you are a failure or have let yourself or your family down: not at all 7. Trouble concentrating on things, such as reading the newspaper or watching television: not at all 8. Moving or speaking so slowly that other people could have noticed. Or the opposite - being so fidgety or restless that you have been moving around a lot more than usual: not at all 9. Thoughts that you would be better off or of hurting yourself in some way: not at all Total score: 0 Depression Screening Interpretation: Negative Depression Screening Done: Yes 97659 - PHQ-9 Billing: Yes Source: Developed by Drs. Hermilo Martinez, Afsaneh Titus, Ed Bello and colleagues, with an educational kailey from [email or web address]. Thrive Questionnaire Date Thrive assessed: 11/22/23 I am a: Patient What is your living situation today?: I have a steady place to live Within the past 12 months, did the food you bought not last and you didn't have the money to get more?: Never true Within the past 12 months, did you worry whether your food would run out before you got money to buy more?: Never true Do you have trouble paying for medicines?: No Do you have trouble getting transportation to medical appointments?: No Do you have trouble paying your heating and electricity bill?: No Do you have trouble taking care of your child, family member or friend?: No Do you have trouble with day-to-day activities such as bathing, preparing meals, shopping, managing finances, etc.?: No Are you currently unemployed and looking for a job?: No Are you interested in more education?: No Please select the resources that you would like help with: None THRIVE Score: 0 AUDIT C Alcohol Use Questionnaire (AUDIT-C) 1. How often do you have a drink containing alcohol?: 4 or more times a week 2. How many drinks containing alcohol do you have on a typical day when you are drinking?: 1 or 2 3. How often do you have six or more drinks on one occasion?: Never Total Score: 4 Score Reviewed/Action Taken: Yes DEYVI-7 AMB Questionnaire DEYVI-7 Date DEYVI - 7 assessed: 11/22/23 Feeling nervous, anxious, or on edge: 0 = Not at all Not being able to stop or control worryin = Not at all Worrying too much about different things: 0 = Not at all Trouble relaxin = Not at all Being so restless that it is hard to sit still: 0 = Not at all Becoming easily annoyed or irritable: 0 = Not at all Feeling afraid as if something awful might happen: 0 = Not at all Total DEYVI-7 score (0-4 normal; 5-9 mild; 10-14 moderate; 15-21 severe): 0 Source: Developed by Drs. Hermilo Martinez, Afsaneh Titus, Ed Bello and colleagues, with an educational kailey from [email or web address]. Review of Systems Const Denies chills, Denies headache(s) and Denies weight loss ENT Denies headache(s) Card Denies chest pain, Denies syncope, Denies irregular heart rhythm and Denies dyspnea Resp Denies chest congestion, Denies cough and Denies dyspnea GI Denies abdominal pain, Denies change in stool character, Denies nausea and Denies vomiting Musc Denies deformity and Denies joint swelling Neuro Denies syncope and Denies headache(s) Physical exam (Primary Care) Vital Signs: Last Vital Signs Pulse 65 11/22/23 11:28 BP 128/62 11/22/23 11:28 Pulse Ox 98 11/22/23 11:28 Oxygen Delivery Method Room Air 11/22/23 11:28 BMI result Body Mass Index 35.4 Tobacco/Smoking Status: Tobacco use Status Tobacco use date assessed 11/22/23 11/22/23 11:29 Patient Tobacco Use Status Former Tobacco user 11/22/23 11:29 Tobacco use type Cigarette 03/25/24 11:29 e-Cigarette/Vaping Use Never Used 11/22/23 11:29 PHQ-9: PHQ-9 Score PHQ-9: Total score 0 11/22/23 11:29 Depression Screening Interpretation: Negative Thrive Assessment: Date of Thrive Assessment Date Thrive assessed 11/22/23 11/22/23 11:29 Const General: cooperative, comfortable, no acute distress and alert Neck Neck: Yes no lymphadenopathy Thyroid: Thyroid normal Resp Effort & Inspection: normal respiratory effort Auscultation: clear to auscultation bilaterally Percussion: percussion normal Cardio Jugular venous distension: no JVD Palpation: normal PMI Rate: regular rate Rhythm: regular rhythm Heart sounds: S1 normal heart sound present and S2 normal heart sound present GI Inspection: Yes normal to inspection Palpation (GI): No hepatosplenomegaly present Skin Other: sebaceous cyst on back Extrem General: Yes no clubbing, cyanosis or edema Assessment and Plan Assessment & Plan Orders: Referrals General Surgery Referral L72.3 - Sebaceous cyst Coding Level of Care Code Est Pt Level 3 (50459)
== END 2023-11-22 11:49 | disposition home or self-care (01) ==
PROVIDERS: PCP Internal Medicine; Visit Provider Internal Medicine
DX: L72.3 Sebaceous cyst (principal)
CPT/HCPCS: 99213

== ENCOUNTER 2023-11-30 13:50 | Outpatient (AMB) | payer OTHER, SELFPAY ==
--- NOTE | 2023-11-30 14:06 | MHC.OFFVIS ---
Intake Vital Signs 11/30/23 14:10 Height 5 ft 10 in Weight 248 lb BMI 35.6 BP 142/65 H Blood Pressure Location Lt brachial Pulse 67 Intake Visit Reasons: infected abscess of back Intake Note: Pt is seen in office for evaluation and treatment of an abscess of the back. Pt c/o: was on antbx on Aug & Sep and the problem persist, pus, bloody discharge, painful, irritated, onset 07/2023, currently stable, would like to have it surgically removed Fran:09/20/23 Prototype Deicer Assembler Required: No Accompanied by: Self / Same As Patient Allergies No Known Allergies Allergy (Verified 11/30/23 14:08) Medication List - Last Reconciled 11/30/23 by Johann Martins MD aspirin (Adult Low Dose Aspirin) 81 mg PO .weekly cholecalciferol (vitamin D3) 25 mcg PO .3 times a week coenzyme Q10 (Ultra CoQ10) 75 mg PO .weekly colchicine 0.6 mg PO DAILY PRN hydrochlorothiazide 25 mg PO DAILY levothyroxine 75 mcg PO DAILY lisinopril 20 mg PO BID metoprolol succinate ER 50 mg PO DAILY oxybutynin chloride 5 mg PO Q8H PRN tadalafil 5 mg PO DAILY 90 days terazosin 10 mg PO BEDTIME 90 days hxwccaab-jkaq-ndfgq-oreg-capry 100 mg-150 mg- 50 mg-150 mg caps PO .weekly HPI HPI Comments History of Present Illness Details 73-year-old male patient returning for re-evaluation of a epidermal inclusion cyst of the midback. This is been infected multiple times over the last several months. He has undergone multiple courses of antibiotics and now reports that the lesion is decreased in size and is no longer draining. He would like to have the lesion excised to prevent further infection. He denies any fever or chills but does report discomfort when sitting or laying down. [facility], [facility] Medical History Obesity 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 Father No problems noted. Social History Housing: House Patient Tobacco Use Status: Former Tobacco user Tobacco use type: Cigarette e-Cigarette/Vaping Use: Never Used Second Hand Smoke Exposure: No service: No Current occupational status: retired Cognitive needs: No Hearing needs: No Vision needs: Yes Review of Systems Const All systems reviewed & are unremarkable except as noted in HPI and below Physical Exam Vital Signs: Last Vital Signs Pulse 67 11/30/23 14:10 BP 142/65 H 11/30/23 14:10 BMI result Body Mass Index 35.6 Const General: no acute distress Nutritional Appearance: well nourished Orientation/consciousness: patient oriented x3 Limitations: no limitations HEENT Head: Yes normocephalic and Yes atraumatic GI Inspection: Yes normal to inspection Back/Spine/Pelvis Back/spine/pelvis image: 1. 1.5 cm epidermal inclusion cyst of the midback with slightly reddened skin but no evidence of fluctuance at this time. Minimal tenderness to palpation. Skin General skin exam: no rashes or lesions noted Neuro General: patient oriented x3 Extrem General: Yes no clubbing, cyanosis or edema Assessment & Plan Assessment & Plan (1) Inflamed sebaceous cyst: Code(s): L72.3 - Sebaceous cyst Plan 73-year-old male patient with a previously infected epidermal inclusion cyst of the back. The lesion has now decreased in size and is no longer infected. I recommended an excision under local anesthesia as an office based procedure. After discussion of the procedure, risks, and alternatives, he consents to the procedure. Coding Level of Care Code Est Pt Level 3 (18269) Diagnoses Inflamed sebaceous cyst L72.3
[2023-11-30 14:10] VITALS: BP 142/65; PULSE 67; BMI 35.6
== END 2023-11-30 14:26 | disposition home or self-care (01) ==
PROVIDERS: PCP Internal Medicine; Visit Provider Surgery
DX: L72.3 Sebaceous cyst (principal)
CPT/HCPCS: 99213

== ENCOUNTER → 2023-11-30 13:50 | Outpatient (BNVA) | payer OTHER, SELFPAY | PROVIDERS: PCP Internal Medicine; Visit Provider Surgery ==

== ENCOUNTER 2023-12-15 07:44 | Outpatient (REF) | payer OTHER, SELFPAY ==
[2023-12-15 10:20] LABS: MANUAL DIFF FLAG NO
[2023-12-15 10:51] LABS: Basophils Percent Auto 0.4 % (0-2); Eosinophils Absolute Auto 0.1 X10*3/uL (0.0-0.4); Eosinophils Percent Auto 1.6 % (0-4); Hematocrit 38.8 % (42.0-52.0); Hemoglobin 13.3 g/dl (14.0-18.0); Imm Gran Abs Auto 0.01 X10*3/uL (0.00-0.03); Imm Gran Pct Auto 0.1 % (0.0-0.4); Lymphocytes Absolute Auto 2.6 X10*3/uL (1.2-4.9); Lymphocytes Percent Auto 34.7 % (20-40); Mean Corpuscular HGB Conc 34.3 g/dl (31.0-36.0); Mean Corpuscular Hemoglobin 31.4 pg (27.0-33.0); Mean Corpuscular Volume 91.5 fL (80.0-98.0); Mean Platelet Volume 10.5 fL (9.4-12.4); Monocytes Absolute Auto 0.6 X10*3/uL (0.1-1.2); Neutrophils Absolute Auto 4.2 x10*3/uL (2.0-8.3); Neutrophils Percent Auto 55.2 % (45-73); Platelet Count 240 X10*3/uL (160-400); Red Blood Count 4.24 X10*6/uL (4.60-5.80); Red Cell Distribution Width 13.6 % (11.0-16.0); White Blood Count 7.5 X10*3/uL (4.8-10.8)
[2023-12-15 11:25] LABS: Alanine Aminotransferase 13 U/L (0-40); Albumin Level 3.8 g/dL (3.5-5.0); Alkaline Phosphatase 41 U/L (39-117); Anion Gap 10 (12-20); Aspartate Amino Transferase 18 U/L (5-37); Bilirubin Total 0.4 mg/dL (0.0-1.0); Blood Urea Nitrogen 19 mg/dL (9-16); Calcium 9.2 mg/dL (8.4-10.2); Carbon Dioxide 27 mmol/L (22-29); Chloride 107 mmol/L (96-108); Cholesterol 114 mg/dL (<200); Estimated Glomerular Filt Rate > 60; Glucose Fasting 114 mg/dL (60-99); HDL Cholesterol 46 mg/dL (>40); LDL Cholesterol Calculated 48 mg/dL (<100); Potassium 4.6 mmol/L (3.3-5.1); Sodium 139 mmol/L (135-145); Total Protein 6.8 g/dL (6.5-8.0); Triglycerides 101 mg/dL (<150)
[2023-12-15 11:42] LABS: Thyroid Stimulating Hormone 1.91 uIU/mL (0.32-4.0)
== END 2023-12-15 07:45 | disposition home or self-care (01) ==
LOC: HO.HMGCLDS 07:44
PROVIDERS: PCP Internal Medicine; Visit Provider Internal Medicine
DX: N28.9 Disorder of kidney and ureter, unspecified (principal); E78.5 Hyperlipidemia, unspecified; E03.9 Hypothyroidism, unspecified; D64.9 Anemia, unspecified
CPT/HCPCS: 36415; 80053; 80061; 84443; 85025

== ENCOUNTER 2023-12-22 09:57 | Outpatient (AMB) | payer OTHER, SELFPAY ==
[2023-12-22 10:00] VITALS: BP 112/66; PULSE 67; O2SAT 98; BMI 35.4
--- NOTE | 2023-12-22 10:00 | A.OFFPC_ITS ---
Vital Signs 12/22/23 10:00 Height 5 ft 10 in Weight 247 lb BMI 35.4 BP 112/66 Blood Pressure Location Lt brachial Position Sitting Pulse 67 Pulse Source Pulse Oximeter Pulse Oximetry (%) 98 Oxygen Delivery Method Room Air Intake Visit Reasons: 6M Follow up Clinical Account Liaison Required: No Pilot Boat Deckhand: Not Required per policy Accompanied by: Self / Same As Patient Allergies No Known Allergies Allergy (Verified 12/22/23 10:00) Medication List - Last Reconciled 12/22/23 by José Miguel Walton MD aspirin (Adult Low Dose Aspirin) 81 mg PO .weekly cholecalciferol (vitamin D3) 25 mcg PO .3 times a week coenzyme Q10 (Ultra CoQ10) 75 mg PO .weekly colchicine 0.6 mg PO DAILY PRN hydrochlorothiazide 25 mg PO DAILY levothyroxine 75 mcg PO DAILY lisinopril 20 mg PO BID metoprolol succinate ER 50 mg PO DAILY oxybutynin chloride 5 mg PO Q8H PRN tadalafil 5 mg PO DAILY 90 days terazosin 10 mg PO BEDTIME 90 days wjnslnfc-iier-crxpj-oreg-capry 100 mg-150 mg- 50 mg-150 mg caps PO .weekly Tobacco use date assessed: 11/22/23 Fall risk assessment: 2 + Falls in past year Last assessed Fall Risk: 12/22/23 Dental Screening Dental Screen Date: 11/22/23 HPI 6M Follow up HPI Details hypertension on rx; doing well; compliant [facility] Medical History Obesity 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 Father No problems noted. Social History Housing: House Patient Tobacco Use Status: Former Tobacco user Tobacco use type: Cigarette e-Cigarette/Vaping Use: Never Used Second Hand Smoke Exposure: No service: No Current occupational status: retired Cognitive needs: No Hearing needs: No Vision needs: Yes (glasses) Questionnaire Thrive Questionnaire Date Thrive assessed: 11/22/23 DEYVI-7 AMB Questionnaire DEYVI-7 Date DEYVI - 7 assessed: 11/22/23 Source: Developed by Drs. Hermilo Martinez, Afsaneh Titus, Ed Bello and colleagues, with an educational kailey from [employer]. Review of Systems Const Denies chills, Denies headache(s) and Denies weight loss ENT Denies headache(s) Card Denies chest pain, Denies syncope, Denies irregular heart rhythm and Denies dyspnea Resp Denies chest congestion, Denies cough and Denies dyspnea GI Denies abdominal pain, Denies change in stool character, Denies nausea and Denies vomiting Musc Denies deformity and Denies joint swelling Neuro Denies syncope and Denies headache(s) Physical exam (Primary Care) Vital Signs: Last Vital Signs Pulse 67 12/22/23 10:00 BP 112/66 12/22/23 10:00 Pulse Ox 98 12/22/23 10:00 Oxygen Delivery Method Room Air 12/22/23 10:00 BMI result Body Mass Index 35.4 Tobacco/Smoking Status: Tobacco use Status Tobacco use date assessed 11/22/23 12/22/23 10:01 Patient Tobacco Use Status Former Tobacco user 12/22/23 10:01 Tobacco use type Cigarette 12/22/23 10:01 e-Cigarette/Vaping Use Never Used 12/22/23 10:01 Thrive Assessment: Date of Thrive Assessment Date Thrive assessed 11/22/23 12/22/23 10:01 Const General: cooperative, comfortable, no acute distress and alert Neck Neck: Yes no lymphadenopathy Thyroid: Thyroid normal Resp Effort & Inspection: normal respiratory effort Auscultation: clear to auscultation bilaterally Percussion: percussion normal Cardio Jugular venous distension: no JVD Palpation: normal PMI Rate: regular rate Rhythm: regular rhythm Heart sounds: S1 normal heart sound present and S2 normal heart sound present GI Inspection: Yes normal to inspection Palpation (GI): No hepatosplenomegaly present Skin General skin exam: no rashes or lesions noted Extrem General: Yes no clubbing, cyanosis or edema Assessment and Plan Assessment & Plan (1) Hypertension: Code(s): I10 - Essential (primary) hypertension Plan: stable; same rx Orders: Orders Lipid Panel Today Z13.220 - Encounter for screening for lipoid disorders Complete Blood Count Auto Diff Today Z13.0 - Encounter for screening for diseases of the blood and blood-forming organs and certain disorders involving the immune mechanism Comprehensive [place]. Panel Fast Today Z13.9 - Encounter for screening, unspecified Thyroid Stimulating Hormone Today Z13.29 - Encounter for screening for other suspected endocrine disorder Coding Level of Care Code Est Pt Level 3 (74792) Diagnoses Hypertension I10
== END 2023-12-22 10:48 | disposition home or self-care (01) ==
PROVIDERS: PCP Internal Medicine; Visit Provider Internal Medicine
DX: I10 Essential (primary) hypertension (principal)
CPT/HCPCS: 99213

== ENCOUNTER 2023-12-24 10:25 | Outpatient (AMB) | payer OTHER, SELFPAY ==
--- NOTE | 2023-12-24 10:28 | A.OFFVIS_ITS ---
Vital Signs 12/24/23 10:42 Height 5 ft 10 in Weight 246 lb 8 oz BMI 35.4 BP 115/58 L Blood Pressure Location Lt brachial Position Sitting Pulse 60 Intake Visit Reasons: Excision infected abscess of back Intake Note: Patient is seen for office procedure, excision of back cyst. Pt c/o: here for removal, no changes Committee Member Required: No Accompanied by: Self / Same As Patient Allergies No Known Allergies Allergy (Verified 12/24/23 10:29) HPI Comments Details: Patient returns today for excision of previously infected cyst of the back. [facility] Medical History Obesity 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 Father No problems noted. Social History Housing: House Patient Tobacco Use Status: Former Tobacco user Tobacco use type: Cigarette e-Cigarette/Vaping Use: Never Used Second Hand Smoke Exposure: No service: No Current occupational status: retired Cognitive needs: No Hearing needs: No Vision needs: Yes (glasses) Office Procedures Excision Details: Preoperative diagnosis: Epidermal inclusion cyst of back Postoperative diagnosis: Same Procedure: Excision of epidermal inclusion cyst of back Surgeon: Johann Martins MD Anesthesia: Local Indications for procedure: 73-year-old male patient with a previous history of infected sebaceous cyst of the back now presenting for excision to prevent further infections. Operative findings: 1.5 cm sebaceous cyst of the midback, midline with no evidence of ongoing infection. Specimen: Epidermal inclusion cyst midback Estimated blood loss: 2 mL Complications: None Procedure details: Patient was brought to the procedure room and placed in a left lateral decubitus position. The site of surgery was confirmed by the patient and informed consent assured. Skin was then prepped with Betadine and draped in a sterile fashion. Local anesthesia was then infiltrated around the lesion and an elliptical incision created with a scalpel. This carried out through subcutaneous tissue and around the cyst wall. Specimen was passed off the table and sent to pathology for further examination. Light pressure was held to maintain hemostasis. Dermis was then reapproximated using interrupted 3-0 Polysorb sutures. Skin was closed using interrupted 3-0 nylon sutures. Sterile dressings consisting of 2 x 2 gauze and Tegaderm were then applied. The patient tolerated the procedure well. He was discharged to home in stable condition. 56725-fkzpu/arms/legs 1.1-2cm Procedure code (CPT) selection complete Assessment & Plan Assessment & Plan (1) Inflamed sebaceous cyst: Code(s): L72.3 - Sebaceous cyst Category: Surgical Plan 73-year-old male patient with a previous history of infected sebaceous cyst of the back now presenting for excision of the cyst to prevent further infection. On examination he was found to have a 1.5 cm diameter epidermal inclusion cyst w ithout evidence of ongoing abscess. He tolerated the procedure well and will return in 1 week for suture removal. Coding Level of Care Code Procedure Only Diagnoses Inflamed sebaceous cyst L72.3 CPT Codes Trunk/Arms/Legs - CPT: 34961-znavi/arms/legs 1.1-2cm ([id number])
[2023-12-24 10:42] VITALS: BP 115/58; PULSE 60; BMI 35.4
== END 2023-12-24 11:42 | disposition home or self-care (01) ==
PROVIDERS: PCP Internal Medicine; Visit Provider Surgery
DX: L72.0 Epidermal cyst (principal)
CPT/HCPCS: 11403

== ENCOUNTER 2023-12-24 10:25 | Outpatient (REF) | payer OTHER, SELFPAY | END 2023-12-24 10:26 | disposition home or self-care (01) | LOC: HO.LNP 10:25 | PROVIDERS: PCP Internal Medicine; Visit Provider Surgery | DX: L02.212 Cutaneous abscess of back [any part, except buttock and flank] (principal); L72.3 Sebaceous cyst | CPT/HCPCS: 11403; 88304 ==

== ENCOUNTER 2023-12-31 09:54 | Outpatient (AMB) | payer OTHER, SELFPAY ==
--- NOTE | 2023-12-31 10:03 | A.OFFVIS_ITS ---
Vital Signs 3 12/31/23 10:09 Height 5 ft 10 in Weight 248 lb 8 oz BMI 35.7 BP 135/65 Blood Pressure Location Lt brachial Position Sitting Pulse 60 Intake Visit Reasons: S/P Post excision abscess of back Intake Note: Patient is seen in office for post op assessment post excision of back abscess. 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 Childers returns 1 week following excision of an epidermal inclusion cyst of the back. He tolerated the procedure well and returns today for wound check and suture removal. [facility] Medical History Obesity 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 Father No problems noted. Social History Housing: House Patient Tobacco Use Status: Former Tobacco user Tobacco use type: Cigarette e-Cigarette/Vaping Use: Never Used Second Hand Smoke Exposure: No service: No Current occupational status: retired Cognitive needs: No Hearing needs: No Vision needs: Yes (glasses) Physical Exam Vital Signs: Last Vital Signs Pulse 60 12/31/23 10:09 BP 135/65 12/31/23 10:09 BMI result Body Mass Index 35.7 Const General: comfortable Back/Spine/Pelvis Other: Incision in the upper mid back is clean, dry, and intact. Sutures removed and the wounds found to be well healed. Back/spine/pelvis image: 2 1. Incision upper mid back Assessment & Plan Assessment & Plan (1) Inflamed sebaceous cyst: Code(s): L72.3 - Sebaceous cyst Category: Surgical Plan 73-year-old male patient status post excision of a epidermal inclusion cyst of the upper mid back. He tolerated the procedure well the wounds have healed nicely. Should follow up as needed. Coding Level of Care Code Global (82951) Diagnoses Inflamed sebaceous cyst L72.3
[2023-12-31 10:09] VITALS: BP 135/65; PULSE 60; BMI 35.7
== END 2023-12-31 10:22 | disposition home or self-care (01) ==
PROVIDERS: PCP Internal Medicine; Visit Provider Surgery
DX: L72.3 Sebaceous cyst (principal)
CPT/HCPCS: 99024

== ENCOUNTER → 2023-12-31 09:54 | Outpatient (BNVA) | payer OTHER, SELFPAY | PROVIDERS: PCP Internal Medicine; Visit Provider Surgery ==

== ENCOUNTER 2024-01-06 10:26 | Outpatient (AMB) | payer OTHER, SELFPAY ==
--- NOTE | 2024-01-06 10:27 | MHC.OFFVIS ---
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 Allergies No Known Allergies Allergy (Verified 12/31/23 10:10) Medication List - Last Reconciled 01/06/24 by Ej Keating MD aspirin (Adult Low Dose Aspirin) 81 mg PO .weekly cholecalciferol (vitamin D3) 25 mcg PO .3 times a week colchicine 0.6 mg PO DAILY PRN hydrochlorothiazide 25 mg PO DAILY levothyroxine 75 mcg PO DAILY lisinopril 20 mg PO BID metoprolol succinate ER 50 mg PO DAILY oxybutynin chloride 5 mg PO Q8H PRN tadalafil 5 mg PO DAILY 90 days terazosin 10 mg PO BEDTIME 90 days kfmvnplx-rrzd-rerbm-oreg-capry 100 mg-150 mg- 50 mg-150 mg caps PO .weekly HPI Comments Details: Oliver comes for follow-up. He has been doing well from cardiac perspective. He denies any symptoms of angina PND remains active. Denies any shortness of breath. Overall says feels healthy. His symptoms of palpitations and PVCs have significantly improved and he only rarely feels them and they are not life-limiting. Takes all his medications. Blood pressures been well controlled. His LDL is well optimized at 48 PFSH Medical History Obesity 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 Father No problems noted. Social History Housing: House Patient Tobacco Use Status: Former Tobacco user Tobacco use type: Cigarette e-Cigarette/Vaping Use: Never Used Second Hand Smoke Exposure: No service: No Current occupational status: retired Cognitive needs: No Hearing needs: No Vision needs: Yes (glasses) Review of Systems Const Denies chills, Denies fatigue, Denies fever(s), Denies frequent falls, Denies weakness, Denies weight gain and Denies weight loss ENT Denies dizziness Card Denies chest pain, Denies leg edema, Denies lightheadedness, Denies palpitations, Denies dyspnea, Denies dyspnea on exertion, Denies orthopnea and Denies other (loss of consciousness) Resp Denies cough, Denies dyspnea and Denies dyspnea on exertion GI Denies hematochezia and Denies change in stool character Musc Denies abnormal gait, Denies muscle weakness, Denies numbness, Denies radiating pain into limb and Denies tingling Neuro Denies abnormal gait, Denies dizziness, Denies frequent falls, Denies numbness, Denies tingling and Denies weakness Endo Denies fatigue and Denies palpitations Physical Exam Vital Signs: Last Vital Signs Pulse 57 01/06/24 10:28 BP 116/64 01/06/24 10:28 BMI result Body Mass Index 35.4 Const General: cooperative, healthy appearing, comfortable and no acute distress Orientation/consciousness: patient oriented x3 HEENT Face and sinus: Yes normal facial exam Mouth: moist mucous membranes Neck Neck: Yes normal visual inspection, Yes full ROM and Yes trachea midline Chest Chest palpation & inspection: normal inspection of the chest Resp Effort & Inspection: normal respiratory effort, able to speak in complete sentences and no respiratory distress GI Inspection: Yes normal to inspection Back/Spine/Pelvis Cervical Spine: normal cervical lordosis Thoracic/Lumbar Spine: thoracic and lumbar spine normal to inspection Skin General skin exam: no rashes or lesions noted Neuro General: patient oriented x3, gait normal, tone normal and moves all extremities Extrem General: Yes normal to inspection and Yes capillary refill normal Office Procedures EKG Details: EKG shows sinus bradycardia at 59 beats per minute otherwise normal EKG 17623-[id number], Complete Assessment & Plan Assessment & Plan (1) PVCs (premature ventricular contractions): Code(s): I49.3 - Ventricular premature depolarization Category: Medical Plan: Highly symptomatic PVCs with normal structure of the heart. He is done well with management with metoprolol and knowing that these PVCs are benign. Overall he feels well and the symptoms are not bothersome now. Continue metoprolol therapy. Avoidance of stimulants was discussed advised to call me with change in his symptom pattern. (2) Hypertension: Code(s): I10 - Essential (primary) hypertension Category: Medical Plan: Hypertension which is currently well optimized advised to continue current therapy. Importance of good blood pressure control was discussed. He understands but he is hopeful that with losing weight he will be able to get off some of these medications. I discussed that that has a possibility. Continue to participate in heart healthy lifestyle and weight reduction therapy. Continue low-salt diet. Advised to monitor blood pressure at home maintain a log. Goal blood pressure less than 130/84. Will follow up in the clinic in 2 years time, sooner p.r.n.. Thank you for allowing me to partake in his care Coding Level of Care Code Est Pt Level 4 (16311) Diagnoses PVCs (premature ventricular contractions) I49.3 Hypertension I10 CPT Codes EKG - CPT: 38801-[id number], Complete ([id number])
[2024-01-06 10:28] VITALS: BP 116/64; PULSE 57; BMI 35.4
== END 2024-01-06 11:05 | disposition home or self-care (01) ==
PROVIDERS: PCP Internal Medicine; Visit Provider Internal Medicine Cardiovascular Disease
DX: I49.3 Ventricular premature depolarization (principal); I10 Essential (primary) hypertension
CPT/HCPCS: 93010; 99214

== ENCOUNTER → 2024-01-06 10:26 | Outpatient (BNVA) | payer OTHER, SELFPAY | PROVIDERS: PCP Internal Medicine; Visit Provider Internal Medicine Cardiovascular Disease | DX: I49.3 Ventricular premature depolarization (principal); I10 Essential (primary) hypertension; Z79.899 Other long term (current) drug therapy | CPT/HCPCS: 93005 ==

== ENCOUNTER 2024-04-11 10:30 | Outpatient (AMB) | payer OTHER, SELFPAY ==
--- NOTE | 2024-04-11 10:34 | MHC.OFFVIS ---
Intake Visit Reasons: 6M Follow Up-PVR Intake Note: Patient presents to the office today for a 6 month follow up/PVR Urology Med: Tadalafil, Terazosin. (Patient is on oxybutynin as needed) Antibiotic Allergy: None Blood Thinner: Aspirin PVR:44mL Allergies No Known Allergies Allergy (Verified 04/11/24 10:34) Medication List - Last Reconciled 04/11/24 by Maciej Shahid MD aspirin (Adult Low Dose Aspirin) 81 mg PO .weekly cholecalciferol (vitamin D3) 25 mcg PO .3 times a week colchicine 0.6 mg PO DAILY PRN hydrochlorothiazide 25 mg PO DAILY levothyroxine 75 mcg PO DAILY lisinopril 20 mg PO BID metoprolol succinate ER 50 mg PO DAILY tadalafil 5 mg PO DAILY 90 days terazosin 10 mg PO BEDTIME 90 days rdbplqlp-yxve-bwadr-oreg-capry 100 mg-150 mg- 50 mg-150 mg caps PO .weekly HPI Comments Details: lOiver is a pleasant male. He is a patient of Dr. Kraft. 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 Father No problems noted. Social History Housing: House Patient Tobacco Use Status: Former Tobacco user Tobacco use type: Cigarette e-Cigarette/Vaping Use: Never Used Second Hand Smoke Exposure: No service: No Current occupational status: retired Cognitive needs: No Hearing needs: No Vision needs: Yes (glasses) Review of Systems Const Denies chills and Denies fever(s) Card Reports no additional complaints and Denies syncope Resp Denies cough GI Denies abdominal pain and Denies heartburn Reports as per HPI and Denies change in libido Neuro Denies syncope Psych Denies change in libido Endo Denies change in libido Physical Exam Const General: cooperative, healthy appearing, comfortable and no acute distress Orientation/consciousness: patient oriented x3 HEENT Face and sinus: Yes normal facial exam Mouth: moist mucous membranes Neck Neck: Yes normal visual inspection, Yes full ROM and Yes trachea midline Chest Chest palpation & inspection: normal inspection of the chest Resp Effort & Inspection: normal respiratory effort, able to speak in complete sentences and no respiratory distress GI Inspection: Yes normal to inspection Back/Spine/Pelvis Cervical Spine: normal cervical lordosis Thoracic/Lumbar Spine: thoracic and lumbar spine normal to inspection Skin General skin exam: no rashes or lesions noted Neuro General: patient oriented x3, gait normal, tone normal and moves all extremities Extrem General: Yes normal to inspection and Yes capillary refill normal Office Procedures Post Void Residual Post Residual Void Post Void Residual (PVR): 44 [id number]-Cvgh Void Residual by ultrasound Results AMB Urinalysis, Automated UA Leukoctes 0 Lidia/uL Last Edit by Abbi Parr CMA on 04/11/24 10:45 UA Nitrite Negative Last Edit by Abbi Parr CMA on 04/11/24 10:45 UA Urobilinogen 0.2 mg/dL Last Edit by Abbi Parr CMA on 04/11/24 10:45 UA Protein 0 mg/dL Last Edit by Abbi Parr CMA on 04/11/24 10:45 UA pH 5.5 Last Edit by Abbi Parr CMA on 04/11/24 10:45 UA Blood 0 Sriram/uL Last Edit by Abbi Parr CMA on 04/11/24 10:45 UA Specific [place] 1.015 Last Edit by Abbi Parr CMA on 04/11/24 10:45 UA Ketone Negative Last Edit by Abib Parr CMA on 04/11/24 10:45 UA Bilirubin 0 mg/dL Last Edit by Abbi Parr CMA on 04/11/24 10:45 UA Glucose 0 mg/dL Last Edit by Abbi Parr CMA on 04/11/24 10:45 Results Reviewed Results Reviewed: Laboratory Last Values Urine pH (Auto) 5.5 04/11/24 10:39 Specific [place] (Auto) 1.015 04/11/24 10:39 Urine Protein (Auto) 0 mg/dL 04/11/24 10:39 Glucose (UA)(Auto) 0 mg/dL 04/11/24 10:39 Urine Ketones (Auto) Negative 04/11/24 10:39 Urine Blood (Auto) 0 Sriram/uL 04/11/24 10:39 Urine Nitrite (Auto) Negative 04/11/24 10:39 Urine Bilirubin (Auto) 0 mg/dL 04/11/24 10:39 Urine Urobilinogen (Auto) 0.2 mg/dL 04/11/24 10:39 Leukocyte Esterase (Auto) 0 Lidia/uL 04/11/24 10:39 Assessment & Plan Assessment & Plan (1) Overactive bladder: Code(s): N32.81 - Overactive bladder Category: Medical (2) Weak urinary stream: Code(s): R39.12 - Poor urinary stream Category: Medical Plan Six-month follow-up PVR Orders: Orders AMB Urinalysis Automated Today N32.81 - Overactive bladder AMB Post Void Residual by ultrasound Today N32.81 - Overactive bladder Medications: Refilled tadalafil 5 mg PO DAILY 90 days 90 tabs 1RF badder N32.81 - Overactive bladder Patient Instructions: Imaging studies, laboratory and physical exam results were discussed and reviewed in detail. No major barriers to patient understanding were identified. An opportunity to ask questions regarding the treatment plan was provided. All questions were answered. The patient expressed understanding and agreement with the above treatment plan. The patient is aware they should contact our office by phone for worsening of their current condition or the appearance of new urologic symptoms. Compliance is encouraged with any medications and followup testing that is ordered. It is a privilege to participate in the urologic care of your patient. If you have any questions or concerns regarding treatment for the above conditions, or other urologic issues, please do not hesitate to contact me. The office telephone contact is [phone]. This note is constructed using voice recognition software. While every effort has been made to ensure accuracy regulatory affairs spec errors may have been included. Yours sincerely, Dr Maciej Shahid MD, ESTRELLA [facility] - Urology Providers of Expert, Compassionate Care for the Genitourinary System Coding Level of Care Code Est Pt Level 3 (80872) Diagnoses Overactive bladder N32.81 Weak urinary stream R39.12 CPT Codes Post Residual Void - PVR CPT Code: 52721-Hoed Void Residual by ultrasound ([id number])
== END 2024-04-11 11:03 | disposition home or self-care (01) ==
PROVIDERS: PCP Internal Medicine; Visit Provider Urology
DX: N32.81 Overactive bladder (principal); R39.12 Poor urinary stream
CPT/HCPCS: 99213

== ENCOUNTER → 2024-04-11 10:30 | Outpatient (BNVA) | payer OTHER, SELFPAY | PROVIDERS: PCP Internal Medicine; Visit Provider Urology | DX: N32.81 Overactive bladder (principal); R39.12 Poor urinary stream | CPT/HCPCS: 51798; 81003 ==

== ENCOUNTER 2024-04-28 13:17 | Outpatient (REF) | payer OTHER, SELFPAY | END 2024-04-28 13:18 | disposition home or self-care (01) | LOC: HO.LNP 13:17 | PROVIDERS: PCP Internal Medicine; Visit Provider Surgery | DX: L72.3 Sebaceous cyst (principal) | CPT/HCPCS: 11401; 88304 ==

== ENCOUNTER 2024-04-28 13:17 | Outpatient (AMB) | payer OTHER, SELFPAY ==
--- NOTE | 2024-04-28 13:30 | A.OFFVIS_ITS ---
Vital Signs 3 04/28/24 13:33 Height 5 ft 10 in Weight 241 lb BMI 34.6 BP 129/59 L Blood Pressure Location Rt brachial Position Sitting Pulse 59 Intake Visit Reasons: abscess on back Intake Note: Patient being seen as an urgent appointment this afternoon for recurrent abscess on mid back. Started to flare last night. Patient c/o: swelling, redness. Denies oozing. 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 Accompanied by: Self / Same As Patient Allergies No Known Allergies Allergy (Verified 04/28/24 13:32) Medication List - Last Reconciled 04/28/24 by Johann Martins MD aspirin (Adult Low Dose Aspirin) 81 mg PO .weekly cholecalciferol (vitamin D3) 25 mcg PO .3 times a week colchicine 0.6 mg PO DAILY PRN hydrochlorothiazide 25 mg PO DAILY levothyroxine 75 mcg PO DAILY lisinopril 20 mg PO BID metoprolol succinate ER 50 mg PO DAILY tadalafil 5 mg PO DAILY 90 days terazosin 10 mg PO BEDTIME 90 days tgubcdqj-ittj-hhbua-oreg-capry 100 mg-150 mg- 50 mg-150 mg caps PO .weekly HPI Comments Details: 74-year-old male patient returning for evaluation of a new infected sebaceous cyst of the back. He has a previous history of infected sebaceous cyst at a different location which was previously excised and has remained asymptomatic. Denies a previous infection at this current site and feels it may need to be drained. He denies fever or chills. [facility] Medical History Obesity 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 Father No problems noted. Social History Housing: House Patient Tobacco Use Status: Former Tobacco user Tobacco use type: Cigarette e-Cigarette/Vaping Use: Never Used Second Hand Smoke Exposure: No service: No Current occupational status: retired Cognitive needs: No Hearing needs: No Vision needs: Yes (glasses) Review of Systems Const All systems reviewed & are unremarkable except as noted in HPI and below Physical Exam Vital Signs: Last Vital Signs Pulse 59 04/28/24 13:33 BP 129/59 L 04/28/24 13:33 BMI result Body Mass Index 34.6 Const General: no acute distress Nutritional Appearance: well nourished Orientation/consciousness: patient oriented x3 Limitations: no limitations HEENT Head: Yes normocephalic and Yes atraumatic GI Inspection: Yes normal to inspection Back/Spine/Pelvis Back/spine/pelvis image: 2 1. Previous excision site is clean, dry, and intact without redness or discharge 2. Site of new infected sebaceous cyst measuring approximately 1 cm in diameter. Skin General skin exam: no rashes or lesions noted Neuro General: patient oriented x3 Extrem General: Yes no clubbing, cyanosis or edema Office Procedures Excision Details: Preoperative diagnosis: Sebaceous cyst left upper back Postoperative diagnosis: Sebaceous cyst left upper back Procedure: Excision of sebaceous cyst left upper back Surgeon: Johann Martins MD Geomorphologist: None Anesthesia: Lidocaine 1% with epinephrine Indications for procedure: 74-year-old male patient presenting with an enlarging painful sebaceous cyst of the left upper back of 1 day duration Operative findings: Inflamed sebaceous cyst left upper back Specimen: Sebaceous cyst left upper back Estimated blood loss: Less than 1 mL Complications: None Procedure details: Patient confirmed the site of surgery. After assuring informed consent was placed in a right lateral decubitus position. The cyst was prepped with Betadine and draped in a sterile fashion. Local anesthesia was then infiltrated around the cyst. Incision was was made in elliptical fashion oriented longitudinally to include the central punctum. No purulent discharge could be identified however the overlying skin did have some erythema. The cyst and cyst wall was able to be grasped with a hemostat and the cyst wall excised. The cyst was left open to allow for secondary healing. Dry sterile dressings were then applied. The patient tolerated the procedure well. He was discharged in stable condition. 73513-vrqgv/arms/legs 0.6-1cm Procedure code (CPT) selection complete Assessment & Plan Assessment & Plan (1) Inflamed sebaceous cyst: Code(s): L72.3 - Sebaceous cyst Category: Surgical Plan 74-year-old male patient presenting with a new infected sebaceous cyst of the left upper back. No purulent discharge was noted after incision and drainage. The cyst was able to be excised but left open to heal secondarily. Dry sterile dressings were applied. He will return in 1 week for wound examination. Orders: Orders 2 Surgical Today L72.3 - Sebaceous cyst Coding Level of Care Code Est Pt Level 4 (36618) Diagnoses Inflamed sebaceous cyst L72.3 CPT Codes Trunk/Arms/Legs - CPT: 71051-uewhj/arms/legs 0.6-1cm ([id number])
[2024-04-28 13:33] VITALS: BP 129/59; PULSE 59; BMI 34.6
== END 2024-04-28 13:48 | disposition home or self-care (01) ==
PROVIDERS: PCP Internal Medicine; Visit Provider Surgery
DX: L72.0 Epidermal cyst (principal)
CPT/HCPCS: 11401; 99214

== ENCOUNTER 2024-05-05 10:55 | Outpatient (AMB) | payer OTHER, SELFPAY ==
--- NOTE | 2024-05-05 10:57 | MHC.OFFVIS ---
Vital Signs 05/05/24 11:06 Height 5 ft 10 in Weight 240 lb 4.862 oz BMI 34.5 BP 120/68 Blood Pressure Location Lt brachial Position Sitting Intake Visit Reasons: 1 wk follow up abscess on back Intake Note: Patient is seen in office for wound check following back cyst. 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 Accompanied by: Self / Same As Patient Allergies No Known Allergies Allergy (Verified 05/05/24 11:07) Medication List - Last Reconciled 05/05/24 by Johann Martins MD aspirin (Adult Low Dose Aspirin) 81 mg PO .weekly cholecalciferol (vitamin D3) 25 mcg PO .3 times a week colchicine 0.6 mg PO DAILY PRN hydrochlorothiazide 25 mg PO DAILY levothyroxine 75 mcg PO DAILY lisinopril 20 mg PO BID metoprolol succinate ER 50 mg PO DAILY tadalafil 5 mg PO DAILY 90 days terazosin 10 mg PO BEDTIME 90 days ljjxdlti-gtgg-iyrem-oreg-capry 100 mg-150 mg- 50 mg-150 mg caps PO .weekly HPI Comments Details: Patient returns 1 week following drainage of an infected sebaceous cyst of the left upper back. He feels much improved and denies any pain in the site. He did note a new area slightly superior to this which appeared red and was concerned that a new cyst was developing. [facility] Medical History Obesity 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 Father No problems noted. Social History Housing: House Patient Tobacco Use Status: Former Tobacco user Tobacco use type: Cigarette e-Cigarette/Vaping Use: Never Used Second Hand Smoke Exposure: No service: No Current occupational status: retired Cognitive needs: No Hearing needs: No Vision needs: Yes (glasses) Physical Exam Const General: comfortable Nutritional Appearance: well nourished Orientation/consciousness: patient oriented x3 Resp Effort & Inspection: normal respiratory effort Back/Spine/Pelvis Other: Excision site in the upper back is clean with slight swelling below the skin. No definite cyst regrowth or abscess is identified. Second lesion appears to be a nevus perhaps a irritated by the previous dressing. No abscess noted. Back/spine/pelvis image: 1. Site of previous infected cyst Neuro General: patient oriented x3 Assessment & Plan Assessment & Plan (1) Inflamed sebaceous cyst: Code(s): L72.3 - Sebaceous cyst Category: Surgical Plan Patient returns 1 week following drainage of an infected sebaceous cyst. His wounds are clean and intact without redness or discharge. I recommended observation. Should he note a recurrence of the cyst, excision could be performed in the office. Coding Level of Care Code Global (90330) Diagnoses Inflamed sebaceous cyst L72.3
[2024-05-05 11:06] VITALS: BP 120/68; BMI 34.5
== END 2024-05-05 11:09 | disposition home or self-care (01) ==
PROVIDERS: PCP Internal Medicine; Visit Provider Surgery
DX: L72.3 Sebaceous cyst (principal)
CPT/HCPCS: 99024

== ENCOUNTER → 2024-05-05 10:55 | Outpatient (BNVA) | payer OTHER, SELFPAY | PROVIDERS: PCP Internal Medicine; Visit Provider Surgery ==

== ENCOUNTER 2024-06-21 06:58 | Outpatient (REF) | payer OTHER, SELFPAY ==
[2024-06-21 10:08] LABS: MANUAL DIFF FLAG NO
[2024-06-21 10:16] LABS: Basophils Percent Auto 0.6 % (0-2); Eosinophils Absolute Auto 0.1 X10*3/uL (0.0-0.4); Eosinophils Percent Auto 2.3 % (0-4); Hematocrit 38.4 % (42.0-52.0); Hemoglobin 13.2 g/dl (14.0-18.0); Imm Gran Abs Auto 0.01 X10*3/uL (0.00-0.03); Imm Gran Pct Auto 0.2 % (0.0-0.4); Lymphocytes Absolute Auto 1.8 X10*3/uL (1.2-4.9); Lymphocytes Percent Auto 28.5 % (20-40); Mean Corpuscular HGB Conc 34.4 g/dl (31.0-36.0); Mean Corpuscular Hemoglobin 31.2 pg (27.0-33.0); Mean Corpuscular Volume 90.8 fL (80.0-98.0); Monocytes Absolute Auto 0.5 X10*3/uL (0.1-1.2); Monocytes Percent Auto 8.2 % (2-11); Neutrophils Absolute Auto 3.7 x10*3/uL (2.0-8.3); Neutrophils Percent Auto 60.2 % (45-73); Platelet Count 230 X10*3/uL (160-400); Red Blood Count 4.23 X10*6/uL (4.60-5.80); Red Cell Distribution Width 13.3 % (11.0-16.0); White Blood Count 6.2 X10*3/uL (4.8-10.8)
[2024-06-21 10:37] LABS: Estimated Average Glucose 120 mg/dL; Hemoglobin A1C 126.8071 umol/L; Hemoglobin A1c % 5.8 % (<6.0)
[2024-06-21 12:07] LABS: Alanine Aminotransferase 15 U/L (0-40); Albumin Level 3.8 g/dL (3.5-5.0); Alkaline Phosphatase 42 U/L (39-117); Anion Gap 10 (12-20); Aspartate Amino Transferase 30 U/L (5-37); Bilirubin Total 0.4 mg/dL (0.0-1.0); Blood Urea Nitrogen 20 mg/dL (9-16); Calcium 9.3 mg/dL (8.4-10.2); Carbon Dioxide 26 mmol/L (22-29); Chloride 109 mmol/L (96-108); Cholesterol 120 mg/dL (<200); Estimated Glomerular Filt Rate > 60; Glucose Fasting 106 mg/dL (60-99); HDL Cholesterol 48 mg/dL (>40); LDL Cholesterol Calculated 40 mg/dL (<100); Potassium 4.5 mmol/L (3.3-5.1); Sodium 140 mmol/L (135-145); Total Protein 6.7 g/dL (6.5-8.0); Triglycerides 162 mg/dL (<150)
[2024-06-21 12:08] LABS: Thyroid Stimulating Hormone 2.19 uIU/mL (0.32-4.0)
== END 2024-06-21 06:59 | disposition home or self-care (01) ==
LOC: HO.HMGCLDS 06:58
PROVIDERS: PCP Internal Medicine; Visit Provider Internal Medicine
DX: R73.9 Hyperglycemia, unspecified (principal); Z13.220 Encounter for screening for lipoid disorders; Z13.0 Encounter for screening for diseases of the blood and blood-forming organs and certain disorders involving the immune mechanism; Z13.9 Encounter for screening, unspecified; Z13.29 Encounter for screening for other suspected endocrine disorder
CPT/HCPCS: 36415; 80053; 80061; 83036; 84443; 85025

== ENCOUNTER 2024-06-26 09:25 | Outpatient (AMB) | payer OTHER, SELFPAY ==
[2024-06-26 09:30] VITALS: BP 142/70; PULSE 58; O2SAT 96; BMI 34.9
--- NOTE | 2024-06-26 09:30 | A.OFFPC_ITS ---
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 Accompanied by: Self / Same As Patient Allergies No Known Allergies Allergy (Verified 06/26/24 09:30) Medication List - Last Reconciled 06/26/24 by José Miguel Walton MD aspirin (Adult Low Dose Aspirin) 81 mg PO .weekly cholecalciferol (vitamin D3) 25 mcg PO .3 times a week colchicine 0.6 mg PO DAILY PRN hydrochlorothiazide 25 mg PO DAILY levothyroxine 75 mcg PO DAILY lisinopril 20 mg PO BID metoprolol succinate ER 50 mg PO DAILY tadalafil 5 mg PO DAILY 90 days terazosin 10 mg PO BEDTIME 90 days gfcfqzju-bvee-trdga-oreg-capry 100 mg-150 mg- 50 mg-150 mg caps PO .weekly Tobacco use date assessed: 11/22/23 Fall risk assessment: 2 + Falls in past year Last assessed Fall Risk: 06/26/24 Dental Screening Dental Screen Date: 11/22/23 HPI hyperlipidemia, IFG HPI Details hypertension on rx; doing well; compliant [facility] Medical History Obesity 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 Father No problems noted. Social History Housing: House Patient Tobacco Use Status: Former Tobacco user Tobacco use type: Cigarette e-Cigarette/Vaping Use: Never Used Second Hand Smoke Exposure: No service: No Current occupational status: retired Cognitive needs: No Hearing needs: No Vision needs: Yes (glasses) Questionnaire Thrive Questionnaire Date Thrive assessed: 11/22/23 AUDIT C Alcohol Use Questionnaire (AUDIT-C) 2. How many drinks containing alcohol do you have on a typical day when you are drinking?: 1 or 2 3. How often do you have six or more drinks on one occasion?: Never Total Score: 0 DEYVI-7 AMB Questionnaire DEYVI-7 Date DEYVI - 7 assessed: 11/22/23 Source: Developed by Drs. Hermilo Martinez, Afsaneh Titus, Ed Bello and colleagues, with an educational kailey from [employer]. Review of Systems Const Denies chills, Denies headache(s) and Denies weight loss ENT Denies headache(s) Card Denies chest pain, Denies syncope, Denies irregular heart rhythm and Denies dyspnea Resp Denies chest congestion, Denies cough and Denies dyspnea GI Denies abdominal pain, Denies change in stool character, Denies nausea and Denies vomiting Musc Denies deformity and Denies joint swelling Neuro Denies syncope and Denies headache(s) Physical exam (Primary Care) Vital Signs: Last Vital Signs Pulse 58 06/26/24 09:30 BP 142/70 H 06/26/24 09:30 Pulse Ox 96 06/26/24 09:30 Oxygen Delivery Method Room Air 06/26/24 09:30 BMI result Body Mass Index 34.9 Tobacco/Smoking Status: Tobacco use Status Tobacco use date assessed 11/22/23 06/26/24 09:35 Patient Tobacco Use Status Former Tobacco user 06/26/24 09:35 Tobacco use type Cigarette 06/26/24 09:35 e-Cigarette/Vaping Use Never Used 06/26/24 09:35 Thrive Assessment: Date of Thrive Assessment Date Thrive assessed 11/22/23 06/26/24 09:35 Const General: cooperative, comfortable, no acute distress and alert Neck Neck: Yes no lymphadenopathy Thyroid: Thyroid normal Resp Effort & Inspection: normal respiratory effort Auscultation: clear to auscultation bilaterally Percussion: percussion normal Cardio Jugular venous distension: no JVD Palpation: normal PMI Rate: regular rate Rhythm: regular rhythm Heart sounds: S1 normal heart sound present and S2 normal heart sound present GI Inspection: Yes normal to inspection Palpation (GI): No hepatosplenomegaly present Skin General skin exam: no rashes or lesions noted Extrem General: Yes no clubbing, cyanosis or edema Coding Level of Care Code Est Pt Level 3 (21096) Diagnoses Hypertension I10 Assessment & Plan Assessment & Plan (1) Hypertension: Code(s): I10 - Essential (primary) hypertension Category: Medical Plan: stable; same rx Orders: Orders Lipid Panel Today Z13.220 - Encounter for screening for lipoid disorders Complete Blood Count Auto Diff Today Z13.0 - Encounter for screening for diseases of the blood and blood-forming organs and certain disorders involving the immune mechanism Comprehensive [place]. Panel Fast Today Z13.9 - Encounter for screening, unspecified Thyroid Stimulating Hormone Today Z13.29 - Encounter for screening for other suspected endocrine disorder Hemoglobin A1c Today R73.9 - Hyperglycemia, unspecified
== END 2024-06-26 09:46 | disposition home or self-care (01) ==
PROVIDERS: PCP Internal Medicine; Visit Provider Internal Medicine
DX: I10 Essential (primary) hypertension (principal)

== ENCOUNTER → 2024-06-26 09:25 | Outpatient (BNVA) | payer OTHER, SELFPAY | PROVIDERS: PCP Internal Medicine; Visit Provider Internal Medicine ==

== ENCOUNTER 2024-10-11 09:43 | Outpatient (AMB) | payer BC, SELFPAY ==
--- NOTE | 2024-10-11 09:46 | MHC.OFFVIS ---
Intake Visit Reasons: 6m/PVR Intake Note: Pt presents to the office today as a telehealth appt for a 6 month/PVR. Allergies No Known Allergies Allergy (Verified 06/26/24 09:30) HPI Comments Details: Oliver is a pleasant male. He is a patient of Dr. Kraft. He seen for the following urologic conditions - lower urinary tract symptoms Telemedicine Evaluation 15 min Consultation Doximity Pretty Video Prior PVR 45 cc Combination daily - terazosin + tadalafil for bladder stability Nocturia 1-2x Failed when trying to come off medications. Is happy with current medication mix. 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 Father No problems noted. Social History Housing: House Patient Tobacco Use Status: Former Tobacco user Tobacco use type: Cigarette e-Cigarette/Vaping Use: Never Used Second Hand Smoke Exposure: No service: No Current occupational status: retired Cognitive needs: No Hearing needs: No Vision needs: Yes (glasses) Review of Systems Const All systems reviewed & are unremarkable except as noted in HPI and below Reports no additional complaints Resp Reports no additional complaints GI Reports no additional complaints Reports as per HPI Musc Reports no additional complaints Physical Exam Telemedicine evaluation Appropriate responses Regular breathing rate and rhythm HEENT Head: Yes normal to inspection Ears: hearing grossly normal bilaterally Eyes General: appearance normal, both eyes and all related structures Neck Neck: Yes normal visual inspection Chest Chest palpation & inspection: normal inspection of the chest Resp Effort & Inspection: normal respiratory effort and able to speak in complete sentences Telehealth Telehealth Telehealth Platform: [employer] Location of provider rendering services: practice address Location of patient: address on file Patient Identification confirmed using: Name, : Yes Telehealth method: video Patient verbally consented to treatment: Yes Patient verbally consented to billing insurance company: Yes Patient informed of any privacy concerns related to visit: Yes Minutes spent on Phone/Video with Pt.: 15 Assessment & Plan Assessment & Plan (1) Overactive bladder: Code(s): N32.81 - Overactive bladder Category: Medical (2) Weak urinary stream: Code(s): R39.12 - Poor urinary stream Category: Medical (3) Nocturia: Code(s): R35.1 - Nocturia Category: Medical Plan Twelve month follow-up PSA office Patient Instructions: This note is constructed using voice recognition software. While every effort has been made to ensure accuracy real estate services coordinator errors may have been included. Imaging studies, laboratory and physical exam results were discussed and reviewed in detail. No major barriers to patient understanding were identified. An opportunity to ask questions regarding the treatment plan was provided. All questions were answered. The patient expressed understanding and agreement with the above treatment plan. The patient is aware they should contact our office by phone for worsening of their current condition or the appearance of new urologic symptoms. Compliance is encouraged with any medications and followup testing that is ordered. It is a privilege to participate in the urologic care of your patient. If you have any questions or concerns regarding treatment for the above conditions, or other urologic issues, please do not hesitate to contact me. The office telephone contact is [phone]. Sincerely, Dr Maciej Shahid MD, ESTRELLA [facility] - Urology Compassionate Specialist Care for the Genitourinary System Coding Level of Care Code Tele Est Pt Level 3 (44926) Complex EM visit Add On G2211 Diagnoses Overactive bladder N32.81 Weak urinary stream R39.12 Nocturia R35.1
--- OUTSIDE RECORDS SUMMARY | 2024-10-11 10:59 | XMS_ITS | Referral Summary ---
Author Organization [facility] Address [address] [place] [address] Care Team Providers Care Research Kennel Supervisor Name Role Phone Unavailable Primary Care Provider Unavailabl e Allergies Active Allergy Reactions Criticality Noted Date Comments Vardenafil 02/16/2013 [place] miserable Medications atorvastatin (LIPITOR) 10 mg tablet Take 1 tablet by mouth. 8 Active colchicine 0.6 mg tablet Take 2 tablets by mouth at the beginning of gout attack, followed by 1 more tablet 1 hour later. Do not exceed 3 tablets total per 24 hours. If pain is not relieved, take 1 tablet 2 times a day for 3 days, then stop 1 Active meloxicam (MOBIC) 15 mg tablet Take 15 mg by mouth 1 (one) time each day if needed. 1 Active lisinopriL (PRINIVIL,ZESTR IL) 20 mg tablet Take 1 tablet by mouth 2 times a day for hypertension 9 Active amLODIPine (NORVASC) 5 mg tablet Take 1 tablet by mouth. 0 Active levothyroxine (SYNTHROID, UNITHROID) 75 mcg tablet Take 1 tablet by mouth 1 (one) time each day. 1 Active metoprolol succinate (TOPROL-XL) 25 mg 24 hr tablet Take 1 tablet by mouth 1 (one) time each day. 0 Active Active Problems Problem Noted Date Diagnosed Date Abnormal laboratory test result 02/14/2020 Overview (11/13/2020): borderline T levels 200-300 Degeneration of intervertebral disc of cervical region 01/04/2019 Overview (11/13/2020): 01/15 FINDINGS : The cervical spine is straightened, there is loss of expected cervical lordotic curvature. The intervertebral disc spaces are preserved. There are anterior endplate osteophytes at C5, C6, and C7. The soft tissues are unremarkable. Palpitations 05/20/2018 Achilles tendinitis of both lower extremities Overview (11/13/2020): Chronic sx, + insertion findings on xr, and overt pump bump deformity. Hypothyroidism 01/12/2017 Overview (11/13/2020): Basename Value Date/Time ? ? TSH 5.16 01/01/2017 Starting on levo 50 Gout 08/26/2016 Overview (11/13/2020): Basename Value Date/Time ? ? URIC ACID 6.9 07/09/2016 Atherosclerosis of aorta (HCC) 11/26/2015 Overview (11/13/2020): CXR 11/12 Acute anterior uveitis of right eye 03/21/2015 Screening for skin cancer 03/23/2014 Overview (11/13/2020): Skin exams with family medicine Body mass index (BMI) 34.0-34.9, adult 3 Overview (11/13/2020): Estimated body mass index is 35.72 kg/(m^2) as calculated from the following: Height as of this encounter: 5' 11 . Weight as of this encounter: 256 lb (116.121 kg). Hip arthritis and DM2 as well. Arthritis of both hips 08/31/2012 Overview (11/13/2020): L>R xr 09/11 Obstructive sleep apnea 04/15/2011 Overview (11/13/2020): 04/03/11: Mild RICHARD by Watch-PAT study with pAHI=14.3, low SpO2=87% 07/25/18: moderate severity RICHARD on Watch-PAT study with pAHI=19, low SpO2=84% (244 lbs) Benign prostatic hyperplasia 08/28/2010 Seborrheic keratosis 08/28/2010 Overview (11/13/2020): 100+ lesions Hx of colonoscopy 03/27/2010 Overview (11/13/2020): 03/07 Pain in toes of both feet 03/27/2010 Overview (11/13/2020): Severe and episodic sev times per yr. URIC ACID 8.1 03/25/2010 Gout suspected. Other specified condition influencing health Encounter for screening for malignant neoplasm o f colon 03/13/2009 Overview (11/13/2020): Surrogate Decision Maker: Alana Childers Advance Directive: Completed and on file Goals of Care: Deferred Code Status: Deferred POLST: Not completed Preferred Place of Care: Deferred Normal colonoscopy in 03/07, repeat colon cancer screening in 10 years. HTN (hypertension) 11/19/2005 PPD positive 04/29/2005 Overview (11/13/2020): CXR negative S/p INH x 9 mo in 2004 Erectile dysfunction due to type 2 diabetes mellitus (CMS/HCC) (HCC) (CMS/HCC) 04/11/2004 Overview (11/13/2020): Basename Value Date/Time ? ? HGBA1C % 5.8 07/09/2016 Basename Value Date/Time ? ? ALBUMIN/CREATININE RATIO, UR 3.7 10/22/2015 Pt refuses statin rx. Immunizations Immunization Administration Dates Next Due [id number] 07/03/2009 Hep A, adult 02/28/2001 Hep A, unspecified 08/24/2001 Hep B, unspecified 09/29/1999,04/17/1999, 999 IPV 02/28/2001 Influenza, split (incl. jovanny fied surface antigen) 07/10/2010 Influenza, split virus, trivalent, PF ,06/02/2013,05/24/2012,06/05 Pneumococcal conjugate PCV 13 03/28/2015 Pneumococcal polysaccharide PPV23 02/27/2014, Td, adult, 2 Lf tetanus toxo id, preservative free, adsorbed 06/08/2002 Tdap 08/28/2010 Varicella 06/17/2017, 6,06/19/2015,06/06 Zoster live 08/28/2010 Social History Tobacco Use Types Packs/Day Years Used Date Smoking Tobacco: Never Assessed Sex and Gender Information Value Date Recorded Sex Assigned at Not on file Legal Sex Male 9:56 AM PST Gender Identity Not on file Sexual Orientation Not on file Plan of Treatment Not on file Procedures Procedure Name Priority Date/Time Associated Diagnosis Comments PROPHYLAXIS - ADULT Routine 11/26/2020 8:30 AM PDT from Last 3 Months or Most Recently Relevant to Health Maintenance Insurance [facility]
--- OUTSIDE RECORDS SUMMARY | 2024-10-11 10:59 | XMS_ITS | Encounter Summary ---
Author Organization [facility] Address [address] [place] [address] Care Team Providers Care Meat Soaker Name Role Phone Unavailable Primary Care Provider Unavailabl e Prior Encounters Date Type Department Care Team Description 12/13/2020 Travel 12/13/2020 8:30 AM PDT Office Visit [facility] [address] [place] [address] Suad Griggs DMD 11/26/2020 Travel 11/26/2020 8:30 AM PDT Office Visit [facility] [address] [place] [address] Suad Griggs DMD 11/13/2020 Travel 11/13/2020 9:00 AM PDT Office Visit [facility] [address] [place] [address] Suad Griggs DMD Plan of Treatment Not on file Procedures Procedure Name Priority Date/Time Associated Diagnosis Comments NC X-RAY Routine 12/13/2020 8:30 AM PDT 20 CEMENT CROWN Routine 12/13/2020 8:30 AM PDT REMAKE CROWN/BRIDGE Routine 12/13/2020 8 :30 AM PDT TOPICAL APPLICATION OF FLUORIDE VARNISH Routine 11/26/2020 8:30 AM PDT PROPHYLAXIS - ADULT Routine 11/26/2020 8 :30 AM PDT NC X-RAY Routine 11/26/2020 8:30 AM PDT 20 CEMENT CROWN Routine 11/26/2020 8:30 AM PDT 20 CORE BUILDUP, INCLUDING ANY PINS WHEN REQUIRED Routine 11/26/2020 8:30 AM PDT 20 CERECFIRED CROWNPOST Routine 11/27/19 8:30 AM PDT INTRAORAL PHOTO Routine 11/13/2020 9:00 AM PDT INTRAORAL - COMPREHENSIVE SERIES OF RADIOGRAPHIC IMAGES Routine 11/13/2020 9:00 AM PDT COMPREHENSIVE ORAL EVALUATION - NEW OR ESTABLISHED PATIENT Routine 11/13/2020 9:00 AM PDT Visit Diagnoses Not on file [facility]
--- OUTSIDE RECORDS SUMMARY | 2024-10-11 10:59 | XMS_ITS | CCD ---
Author Organization [facility] Address [address] [place] [address] Care Team Providers Care Marketing Communications Associate Name Role Phone Unavailable Primary Care Provider Unavailabl e Allergies Active Allergy Reactions Criticality Noted Date Comments Vardenafil 02/16/2013 [place] miserable Medications atorvastatin (LIPITOR) 10 mg tablet [...] dysfunction due to type 2 diabetes mellitus ([facility]/HCC) (HCC) ([facility]/HCC) 04/11/2004 Overview (11/13/2020): Basename Value Date/Time ? ? HGBA1C % 5.8 07/09/2016 Basename Value Date/Time ? ? ALBUMIN/CREATININE RATIO, UR 3.7 10/22/2015 Pt refuses statin rx. Immunizations Immunization Administration Dates Next Due [id number] 07/03/2009 Hep A, adult 02/28/2001 Hep A, [...]
--- OUTSIDE RECORDS SUMMARY | 2024-10-11 10:59 | XMS_ITS | Clinical Summary ---
Author Organization [facility] Address [address] [place] [address] Care Team Providers Care Forms Analyst Name Role Phone José Miguel Walton Primary Care Provider [phone] Allergies No known active allergies Medications colchicine (COLCRYS) 0.6 mg tablet Take 2 tablets by mouth at the beginning of gout attack, followed by 1 more tablet 1 hour later. Do not exceed 3 tablets total per 24 hours. If pain is not relieved, take 1 tablet 2 times a day for 3 days, then stop 1 Active ibuprofen (MOTRIN) 600 mg tablet Take 600 mg by mouth every 4 hours as needed. 1 Active levothyroxine (SYNTHROID, LEVOTHROID) 75 mcg tablet Take 1 tablet by mouth daily. 1 Active lisinopriL (PRINIVIL,ZESTR IL) 20 mg tablet Take 20 mg by mouth. 9 Active metoprolol succinate XL (TOPROL XL) 25 mg tablet Take 25 mg by mouth. 0 Active terazosin (HYTRIN) 10 mg capsule 2 Active Active Problems Problem Noted Date Diagnosed Date Class 2 obesity 03/03/2022 Abnormal laboratory test result 02/14/2020 Overview (03/03/2022): borderline T levels 200-300 Abnormal laboratory test result 02/14/2020 Overview (03/03/2022): borderline T levels 200-300 Degeneration of intervertebral disc of cervical region 01/04/2019 Overview (03/03/2022): 01/15 FINDINGS : The cervical spine is straightened, there is loss of expected cervical lordotic curvature. The intervertebral disc spaces are preserved. There are anterior endplate osteophytes at C5, C6, and C7. The soft tissues are unremarkable. 01/15 FINDINGS : The cervical spine is straightened, there is loss of expected cervical lordotic curvature. The intervertebral disc spaces are preserved. There are anterior endplate osteophytes at C5, C6, and C7. The soft tissues are unremarkable. Palpitations 05/20/2018 Achilles tendinitis of both lower extremities Overview (03/03/2022): Chronic sx, + insertion findings on xr, and overt pump bump deformity. Chronic sx, + insertion findings on xr, and overt pump bump deformity. Hypothyroidism 01/12/2017 Overview (03/03/2022): Basename Value Date/Time ? ? TSH 5.16 01/01/2017 Starting on levo 50 Basename Value Date/Time ? ? TSH 5.16 01/01/2017 Starting on levo 50 Gout 08/26/2016 Overview (03/03/2022): Basename Value Date/Time ? ? URIC ACID 6.9 07/09/2016 Basename Value Date/Time ? ? URIC ACID 6.9 07/09/2016 Atherosclerosis of aorta 11/26/2015 Overview (03/03/2022): CXR 11/12 CXR 11/12 Acute anterior uveitis of right eye 03/21/2015 Arthritis of both hips 08/31/2012 Overview (03/03/2022): L>R xr 09/11 L>R xr 09/11 Obstructive sleep apnea 04/15/2011 Overview (03/03/2022): 04/03/11: Mild RICHARD by Watch-PAT study with pAHI=14.3, low SpO2=87% 07/25/18: moderate severity RICHARD on Watch-PAT study with pAHI=19, low SpO2=84% (244 lbs) 04/03/11: Mild RICHARD by Watch-PAT study with pAHI=14.3, low SpO2=87% 07/25/18: moderate severity RICHARD on Watch-PAT study with pAHI=19, low SpO2=84% (244 lbs) Benign prostatic hyperplasia 08/28/2010 Seborrheic keratosis 08/28/2010 Overview (03/03/2022): 100+ lesions 100+ lesions Pain in toes of both feet 03/27/2010 Overview (03/03/2022): Severe and episodic sev times per yr. URIC ACID 8.1 03/25/2010 Gout suspected. Severe and episodic sev times per yr. URIC ACID 8.1 03/25/2010 Gout suspected. HTN (hypertension) 11/19/2005 PPD positive 04/29/2005 Overview (03/03/2022): CXR negative S/p INH x 9 mo in 2004 CXR negative S/p INH x 9 mo in 2004 Erectile dysfunction due to type 2 diabetes mellitus ([facility]/HCC) 04/11/2004 Overview (03/03/2022): Basename Value Date/Time ? ? HGBA1C % 5.8 07/09/2016 Basename Value Date/Time ? ? ALBUMIN/CREATININE RATIO, UR 3.7 10/22/2015 Pt refuses statin rx. Basename Value Date/Time ? ? HGBA1C % 5.8 07/09/2016 Basename Value Date/Time ? ? ALBUMIN/CREATININE RATIO, UR 3.7 10/22/2015 Pt refuses statin rx. Social History Tobacco Use Types Packs/Day Years Used Date Smoking Tobacco: Never Assessed Sex and Gender Information Value Date Recorded Sex Assigned at Male 02/28/2022 4:46 PM EDT Legal Sex Male 10:53 AM EDT Gender Identity Male 02/28/2022 4:46 PM EDT Sexual Orientation Straight 02/28/2022 4: 46 PM EDT Last Filed Vital Signs Vital Sign Reading Time Taken Comments Blood Pressure 174/88 03/03/2022 8:35 AM EDT Pulse - - Temperature - - Respiratory Rate - - Oxygen Saturation - - Inhaled Oxygen Concentration - - Weight 113.4 kg (250 lb) 03/03/2022 8:35 AM EDT Height 177.8 cm (5' 10 ) 03/03/2022 8:35 AM EDT Body Mass Index 35.87 03/03/2022 8:35 AM EDT Plan of Treatment Health Maintenance Due Date Last Done Comments Basic Metabolic Panel 1949 Cologuard 1950 Colon Cancer Screening 1950 Colonoscopy 1949 FOBT / Fit Test 1949 Hemoglobin A1C 1949 Hepatitis C Screening 1949 Sigmoidoscopy 1949 Urine Microalbumin 1959 Zoster Vaccines (2 of 3) 10/23/2010 08/28/2010 DTaP,Tdap,and Td Vaccines (2 - Td or Tdap) 08/28/2020 08/28/2010, 06/08/2002 Ophthalmology Exam 04/02/2021 04/02/2020, 03/18/2009 RSV Vaccine (60+ years old and patients) (1 - 1-dose 75+ series) 01/03/2024 COVID-19 Vaccine (5 - 2023- season) 2024 12/03/2021, 06/24/2021, 10/24/2020, Additional history exists Influenza Vaccine (#1) 2024 , 06/17/2017, 07/03/2016, Additional history exists Alcohol/Substance Use Screening 08/30/2024 Depression Screening and Follow-Up 08/30/2024 Health Care Proxy Review 08/30/2024 Social Drivers of Health Annual Screening 08/30/2024 Hepatitis B Vaccines Aged Out 09/29/1999, 04/17/1999, 03/17/1999 No longer eligible based on patient's age to complete this topic Pneumococcal Vaccine: 65+ Years Completed 06/05/2021, 03/28/2015, 02/27/2014, Additional history exists Insurance [facility] Care Teams Forms Analyst Relationship Specialty Start Date End Date José Miguel Walton [address] [place] [address] [place] [address] PCP - General Internal Medicine 03/03/22
--- OUTSIDE RECORDS SUMMARY | 2024-10-11 10:59 | XMS_ITS | Referral Summary ---
Author Organization [facility] Address [address] [place] [address] Care Team Providers Care Director Of Retail Name Role Phone José Miguel Walton Primary Care Provider [phone] Allergies No known active allergies Medications colchicine [...] dysfunction due to type 2 diabetes mellitus ([facility]) 04/11/2004 Overview (03/03/2022): Basename Value Date/Time ? [...] 03/03/2022 8:35 AM EDT Plan of Treatment Not on file Insurance [facility] MCR REPLACE [employer] Care Teams Director Of Retail Relationship Specialty Start Date End Date José Miguel Walton [address] [place] [address] [place] [address] PCP - General Internal Medicine 03/03/22
--- OUTSIDE RECORDS SUMMARY | 2024-10-11 10:59 | XMS_ITS ---
Author Organization [facility] Address [address] [place] [address] Care Team Providers Care Machine Shop Repair Technician Name Role Phone Unavailable Unavailable Unavailable Surgery Details Not on file Complications Check Surgery Details section. Procedure Estimated Blood Loss Check Surgery Details section. Procedure Findings Check Surgery Details section. Procedure Specimens Taken Check Surgery Details section.
--- OUTSIDE RECORDS SUMMARY | 2024-10-11 10:59 | XMS_ITS | Clinical Summary ---
Author Organization [facility] Address [address] [facility] [address] [place] [address] Care Team Providers Care Yarn Spinner Name Role Phone Unavailable Primary Care Provider Unavailabl e Allergies Active Allergy Reactions Criticality Noted Date Comments Vardenafil 02/16/2013 [place] miserable Medications atorvastatin (LIPITOR) 10 mg tablet [...] rx. Immunizations Immunization Administration Dates Next Due [id number] 07/03/2009 Hep A, adult 02/28/2001 Hep A, [...] Orientation Not on file Plan of Treatment Health Maintenance Due Date Last Done Comments Dental Prophylaxis 05/30/2021 11/26/2020 Meningococcal B Vaccine Aged Out No l onger eligible based on patient's age to complete this topic Procedures Procedure Name Priority Date/Time Associated Diagnosis Comments PROPHYLAXIS - ADULT Routine 11/26/2020 8:30 AM PDT from Last 3 Months or Most Recently Relevant to Health Maintenance [facility]
== END 2024-10-11 10:03 | disposition home or self-care (01) ==
LOC: HO.HUSH 09:43
PROVIDERS: PCP Internal Medicine; Visit Provider Urology
DX: N32.81 Overactive bladder (principal); R39.12 Poor urinary stream; R35.1 Nocturia
CPT/HCPCS: 99213

== ENCOUNTER 2024-12-14 08:42 | Outpatient (REF) | payer BC, SELFPAY ==
--- OUTSIDE RECORDS SUMMARY | 2024-12-14 09:18 | XMS_ITS | Clinical Summary ---
Author Organization [facility] Address [address] [place] [address] Care Team Providers Care Asphalt Distributor Tender Name Role Phone Unavailable Primary Care Provider Unavailabl e Allergies Active Allergy Reactions Criticality Noted Date Comments Vardenafil 02/16/2013 [place] miserable Medications atorvastatin (LIPITOR) 10 mg tablet [...] 6.9 07/09/2016 Atherosclerosis of aorta 11/26/2015 Overview (11/13/2020): CXR 11/12 Acute anterior [...] Erectile dysfunction due to type 2 diabetes corby itus 04/11/2004 Overview (11/13/2020): Basename Value Date/Time ? ? HGBA1C % 5.8 07/09/2016 Basename Value Date/Time ? ? ALBUMIN/CREATININE RATIO, UR 3.7 10/22/2015 Pt refuses statin rx. Immunizations Immunization Administration Dates Next Due [id number] 07/03/2009 Hep A, adult 02/28/2001 Hep A, [...] Most Recently Relevant to Health Maintenance [facility] [id number]
--- OUTSIDE RECORDS SUMMARY | 2024-12-14 09:18 | XMS_ITS | Clinical Summary ---
Author Organization [facility] Address [address] [place] [address] Care Team Providers Care Psychologist Military Personnel Name Role Phone José Miguel Walotn Primary Care Provider [phone] Allergies No known active allergies Medications colchicine [...] type 2 diabetes corby itus 04/11/2004 Overview (03/03/2022): Basename Value Date/Time ? [...] - 1-dose 75+ series) 01/03/2024 COVID-19 Vaccine ( - season) 2024 12/03/2021, 06/24/2021, 10/24/2020, Additional history exists Alcohol/Substance Use Screening 08/30/2024 Depression Screening and Follow-Up 08/30/2024 Health Care Proxy Review 08/30/2024 Social Drivers of Health Annual Screening 08/30/2024 Influenza Vaccine (Season Ended) 2025 05/27/2021, 06/17/2017, 07/03/2016, Additional history exists Hepatitis B Vaccines Aged Out 09/29/1999, 04/17/1999, 03/17/1999 No longer eligible based on patient's age to complete this topic Pneumococcal Vaccine: 50+ Years Completed 06/05/2021, 03/28/2015, 02/27/2014, Additional history exists Insurance [facility] MCR REPLACE [employer] Care Teams Psychologist Military Personnel Relationship Specialty Start Date End Date José Miguel Walton [address] [place] [address] [place] [address] PCP - General Internal Medicine 03/03/22
--- OUTSIDE RECORDS SUMMARY | 2024-12-14 09:18 | XMS_ITS | Referral Summary ---
Author Organization [facility] Address [address] [place] [address] Care Team Providers Care Location Man Name Role Phone José Miguel Walton Primary Care Provider [phone] Allergies No known active allergies Medications colchicine [...] Plan of Treatment Not on file Insurance [facility] MCR REPLACE [employer] Care Teams Location Man Relationship Specialty Start Date End Date José Miguel Walton [address] [place] [address] [place] [address] PCP - General Internal Medicine 03/03/22
--- OUTSIDE RECORDS SUMMARY | 2024-12-14 09:18 | XMS_ITS | Encounter Summary ---
Author Organization [facility] Address [address] [place] [address] Care Team Providers Care Qa Auditor Name Role Phone Unavailable Primary Care Provider Unavailabl e Prior Encounters Date Type Department Care Team Description 12/13/2020 Travel 12/13/2020 8:30 AM PDT Office Visit [facility] [address] [place] [address] Suad Griggs DMD 11/26/2020 Travel 11/26/2020 8:30 AM PDT Office Visit [facility] [address] [place] [address] Suad Griggs DMD 11/13/2020 Travel 11/13/2020 9:00 AM PDT Office Visit [facility] [address] [place] [address] Suad Griggs DMD Plan of Treatment Not [...] PDT Visit Diagnoses Not on file Insurance [facility]
[2024-12-14 10:09] LABS: MANUAL DIFF FLAG NO
[2024-12-14 10:13] LABS: Basophils Percent Auto 0.6 % (0-2); Eosinophils Absolute Auto 0.1 X10*3/uL (0.0-0.4); Eosinophils Percent Auto 1.2 % (0-4); Hematocrit 38.3 % (42.0-52.0); Imm Gran Abs Auto 0.02 X10*3/uL (0.00-0.03); Imm Gran Pct Auto 0.3 % (0.0-0.4); Lymphocytes Absolute Auto 2.5 X10*3/uL (1.2-4.9); Mean Corpuscular HGB Conc 33.9 g/dl (31.0-36.0); Mean Corpuscular Hemoglobin 31.1 pg (27.0-33.0); Mean Corpuscular Volume 91.6 fL (80.0-98.0); Monocytes Absolute Auto 0.7 X10*3/uL (0.1-1.2); Neutrophils Percent Auto 54.9 % (45-73); Platelet Count 234 X10*3/uL (160-400); Red Blood Count 4.18 X10*6/uL (4.60-5.80); Red Cell Distribution Width 12.8 % (11.0-16.0); White Blood Count 7.2 X10*3/uL (4.8-10.8)
[2024-12-14 10:57] LABS: Appearance Urine Clear; Color Urine Yellow; Glucose Urine UA Negative (Negative); Leukocyte Esterase Urine Negative (Negative); Nitrite Urine Negative (Negative); Specific Gravity - Urine 1.015 (1.005-1.025); Urine Blood Negative (Negative); Urine Ketones Negative (Negative); Urine Protein Negative (Neg-Trace)
[2024-12-14 12:10] LABS: Free T4 (Free Thyroxine) 1.12 ng/dL (0.71-1.85); Thyroid Stimulating Hormone 2.75 uIU/mL (0.32-4.0); Vitamin D 25-OH Total 24.4 ng/mL (>30)
[2024-12-14 12:13] LABS: Alanine Aminotransferase 14 U/L (0-40); Albumin Level 3.8 g/dL (3.5-5.0); Anion Gap 10 (12-20); Aspartate Amino Transferase 23 U/L (5-37); Bilirubin Total 0.4 mg/dL (0.0-1.0); Blood Urea Nitrogen 16 mg/dL (9-16); Carbon Dioxide 26 mmol/L (22-29); Chloride 106 mmol/L (96-108); Cholesterol 100 mg/dL (<200); Estimated Glomerular Filt Rate > 60; Glucose Fasting 105 mg/dL (60-99); HDL Cholesterol 45 mg/dL (>40); LDL Cholesterol Calculated 30 mg/dL (<100); Potassium 4.1 mmol/L (3.3-5.1); Sodium 138 mmol/L (135-145); Total Protein 6.7 g/dL (6.5-8.0); Triglycerides 125 mg/dL (<150)
[2024-12-14 12:19] LABS: Alkaline Phosphatase 47 U/L (39-117)
== END 2024-12-14 08:43 | disposition home or self-care (01) ==
LOC: HO.HMGCLDS 08:42
PROVIDERS: PCP Internal Medicine; Visit Provider Internal Medicine
DX: D64.9 Anemia, unspecified (principal); E78.00 Pure hypercholesterolemia, unspecified; E03.9 Hypothyroidism, unspecified; R30.0 Dysuria; E55.9 Vitamin D deficiency, unspecified; M10.9 Gout, unspecified
CPT/HCPCS: 36415; 80053; 80061; 81003; 82306; 84439; 84443; 84550; 85025

== ENCOUNTER 2024-12-19 13:39 | Outpatient (AMB) | payer BC, SELFPAY ==
[2024-12-19 13:45] VITALS: BP 124/78; PULSE 66; O2SAT 96; BMI 35.2
--- NOTE | 2024-12-19 13:45 | MHC.PC.OV ---
Vital Signs 12/19/24 13:45 Height 5 ft 10 in Weight 245 lb 6 oz BMI 35.2 BP 124/78 Blood Pressure Location Lt brachial Position Sitting Pulse 66 Pulse Source Pulse Oximeter Pulse Oximetry (%) 96 Oxygen Delivery Method Room Air Intake Visit Reasons: RENEA Walton Customer Counter Associate Required: No Accompanied by: Self / Same As Patient Allergies No Known Allergies Allergy (Verified 12/19/24 14:18) Medication List - Last Reconciled 12/19/24 by Timbo Hanson MD aspirin (Adult Low Dose Aspirin) 81 mg PO .weekly cholecalciferol (vitamin D3) 25 mcg PO .3 times a week colchicine 0.6 mg PO DAILY PRN hydrochlorothiazide 25 mg PO DAILY levothyroxine 75 mcg PO DAILY lisinopril 20 mg PO BID metoprolol succinate ER 50 mg PO DAILY tadalafil 5 mg PO DAILY 90 days terazosin 10 mg PO BEDTIME 90 days wifqciod-hoax-sogzf-oreg-capry 100 mg-150 mg- 50 mg-150 mg caps PO 2XW Tobacco use date assessed: 12/19/24 Fall risk assessment: 2 + Falls in past year Last assessed Fall Risk: 12/19/24 Dental Screening Dental Screen Date: 12/19/24 Did you have a dental visit in the last 12 months?: No Did you have a dental problem in the last 6 months where you did not have access to dental care?: No Was dental information given to patient?: No HPI RENEA Walton HPI Details Patient comes in today for his follow up visit - is transferring over from Dr. Walton, who retired from the practice last month Patient states that he currently feels okay except for on and off left-sided sciatica, which he states has been bothering him on and off for years He denies any headaches or dizziness Denies any chest pains, no SOB No nausea/vomiting, no abdominal pain No change in bowel habits noted He had his follow up labs done last week - to discuss his results [facility] Medical History (Updated 12/20/24 @ 04:02 by Timbo Hanson MD) Obesity (BMI 30-39.9) Benign prostatic hyperplasia with lower urinary tract symptoms Vitamin D deficiency Acquired hypothyroidism Essential hypertension Impaired fasting glucose Obesity Gout Hyperlipidemia Surgical History History of surgery of head History of dental surgery History of hernia repair Family History Mother No problems noted. Father No problems noted. Social History Housing: House Patient Tobacco Use Status: Former Tobacco user Tobacco use type: Cigarette e-Cigarette/Vaping Use: Never Used Second Hand Smoke Exposure: No service: No Current occupational status: retired Cognitive needs: No Hearing needs: No Vision needs: Yes (glasses) Questionnaire PHQ-9 Over the last 2 weeks, how often have you been bothered by any of the following problems? 1. Little interest or pleasure in doing things: not at all 2. Feeling down, depressed, or hopeless: not at all 3. Trouble falling or staying asleep, or sleeping too much: not at all 4. Feeling tired or having little energy: not at all 5. Poor appetite or overeating: not at all 6. Feeling bad about yourself - or that you are a failure or have let yourself or your family down: not at all 7. Trouble concentrating on things, such as reading the newspaper or watching television: not at all 8. Moving or speaking so slowly that other people could have noticed. Or the opposite - being so fidgety or restless that you have been moving around a lot more than usual: not at all 9. Thoughts that you would be better off or of hurting yourself in some way: not at all Total score: 0 Depression Screening Interpretation: Negative Depression Screening Done: Yes 28328 - PHQ-9 Billing: Yes Source: Developed by Drs. Hermilo Martinez, Afsaneh Titus, Ed Bello and colleagues, with an educational kailey from [employer]. Thrive Questionnaire Date Thrive assessed: 12/19/24 I am a: Patient What is your living situation today?: I have a steady place to live Within the past 12 months, did the food you bought not last and you didn't have the money to get more?: Never true Within the past 12 months, did you worry whether your food would run out before you got money to buy more?: Never true Do you have trouble paying for medicines?: No Do you have trouble getting transportation to medical appointments?: No Do you have trouble paying your heating and electricity bill?: No Do you have trouble taking care of your child, family member or friend?: No Do you have trouble with day-to-day activities such as bathing, preparing meals, shopping, managing finances, etc.?: No Are you currently unemployed and looking for a job?: No Are you interested in more education?: No Please select the resources that you would like help with: None Currently or been in a relationship where the following occur: No concerns reported THRIVE Score: 0 AUDIT C Alcohol Use Questionnaire (AUDIT-C) 1. How often do you have a drink containing alcohol?: Monthly or less 2. How many drinks containing alcohol do you have on a typical day when you are drinking?: 1 or 2 3. How often do you have six or more drinks on one occasion?: Never Total Score: 1 Score Reviewed/Action Taken: Yes DEYVI-7 AMB Questionnaire DEYVI-7 Date DEYVI - 7 assessed: 12/19/24 Feeling nervous, anxious, or on edge: 0 = Not at all Not being able to stop or control worryin = Not at all Worrying too much about different things: 0 = Not at all Trouble relaxin = Not at all Being so restless that it is hard to sit still: 0 = Not at all Becoming easily annoyed or irritable: 0 = Not at all Feeling afraid as if something awful might happen: 0 = Not at all Total DEYVI-7 score (0-4 normal; 5-9 mild; 10-14 moderate; 15-21 severe): 0 Source: Developed by Drs. Hermilo Martinez, Afsaneh Titus, Ed Bello and colleagues, with an educational kailey from [employer]. Review of Systems Const Denies chills, Denies fatigue, Denies fever(s) and Denies headache(s) ENT Denies dysphagia, Denies dizziness, Denies otalgia, Denies headache(s), Denies neck pain, Denies odynophagia and Denies sore throat Card Denies chest pain, Denies palpitations and Denies dyspnea Resp Denies chest congestion, Denies cough and Denies dyspnea GI Denies abdominal pain, Denies constipation, Denies dysphagia, Denies heartburn, Denies diarrhea, Denies nausea, Denies odynophagia and Denies vomiting Denies difficulty urinating, Denies dysuria, Reports nocturia (better with Rx) and Denies urinary frequency Musc Reports back pain (on and off left-sided sciatica) and Denies neck pain Skin/Breast Denies rash Neuro Denies dizziness and Denies headache(s) Endo Denies fatigue and Denies palpitations Physical exam (Primary Care) Vital Signs: Last Vital Signs Pulse 66 12/19/24 13:45 BP 124/78 12/19/24 13:45 Pulse Ox 96 12/19/24 13:45 Oxygen Delivery Method Room Air 12/19/24 13:45 BMI result Body Mass Index 35.2 Tobacco/Smoking Status: Tobacco use Status Tobacco use date assessed 12/19/24 12/19/24 13:53 Patient Tobacco Use Status Former Tobacco user 12/19/24 13:53 Tobacco use type Cigarette 12/19/24 13:53 e-Cigarette/Vaping Use Never Used 12/19/24 13:53 PHQ-9: PHQ-9 Score PHQ-9: Total score 0 12/19/24 14:19 Depression Screening Interpretation: Negative Thrive Assessment: Date of Thrive Assessment Date Thrive assessed 12/19/24 12/19/24 13:53 Currently or been in a relationship where the following occur: No concerns reported Const General: no acute distress and alert HENMT Ears: TM's normal bilaterally and EAC's normal Throat: Yes posterior oropharynx normal and Yes tonsils normal (no TP congestion) Neck Neck: Yes supple and No lymphadenopathy Thyroid: Thyroid normal Resp Auscultation: clear to auscultation bilaterally, no rales and no wheezes Cardio Rate: regular rate Rhythm: regular rhythm Heart sounds: no murmurs GI Palpation (GI): Soft to palpation and nontender Auscultation: normal bowel sounds General: Yes no CVA tenderness Back/Spine/Pelvis Back: no CVA tenderness Thoracic/Lumbar Spine: lumbar spinal tenderness (mild) Skin Rashes: no rashes Extrem General: Yes no clubbing, cyanosis or edema Results Reviewed Results Reviewed: Laboratory Tests 12/14/24 08:49 WBC 7.2 Hgb 13.0 L Hct 38.3 L Plt Count 234 Sodium 138 Potassium 4.1 Creatinine 0.88 Estimated GFR > 60 Fasting Glucose 105 H Uric Acid 7.0 Calcium 9.0 AST 23 ALT 14 Triglycerides 125 Cholesterol 100 LDL Cholesterol, Calc 30 HDL Cholesterol 45 25-OH Vitamin D Total 24.4 L TSH 2.75 Free T4 1.12 Ur Specific [place] 1.015 Urine Protein Negative Urine Glucose (UA) Negative Urine Blood Negative Urine Nitrite Negative Ur Leukocyte Esterase Negative Coding Level of Care Code Est Pt Level 4 (12738) Complex EM visit Add On G2211 Diagnoses Essential hypertension I10 Gout, unspecified cause, unspecified chronicity, unspecified site M10.9 Gout site: unspecified site Gout etiology: unspecified cause Chronicity: unspecified Acquired hypothyroidism E03.9 Impaired fasting glucose R73.01 Vitamin D deficiency E55.9 Benign prostatic hyperplasia with nocturia N40.1; R35.1 Lower urinary tract symptom detail: nocturia Obesity (BMI 30-39.9) E66.9 Additional Codes PHQ-9 - 56733 - PHQ-9 Billing: Yes ([id number]) Assessment & Plan Assessment & Plan (1) Essential hypertension: Code(s): I10 - Essential (primary) hypertension Category: Medical Plan: Reinforced low sodium diet - goal is systolic BP of 120 to 130 mm or less Continue Lisinopril 20 mg QD, Metoprolol ER 50 mg QD and HCTZ 25 mg QD Results of his labs done last week reviewed and discussed with patient Will recheck his labs and fasting lipids in 6 months for follow up (2) Gout: Code(s): M10.9 - Gout, unspecified Category: Medical Qualifiers: Gout site: unspecified site Gout etiology: unspecified cause Chronicity: unspecified Qualified Code(s): M10.9 - Gout, unspecified Plan: Patient denies any recent flare up of gout Reinforced low purine diet Continue Colchicine 0.6 mg QD (3) Acquired hypothyroidism: Code(s): E03.9 - Hypothyroidism, unspecified Category: Medical Plan: His TFTs were normal on his recent labs Continue Levothyroxine 75 mcg QD (4) Impaired fasting glucose: Code(s): R73.01 - Impaired fasting glucose Category: Medical Plan: His FBS was slightly elevated at 105 mg/dl on his labs done last week HgbA1c has been normal when checked previously, most recently at 5.8% in May 2024 Reinforced low calorie/low carb diet (5) Vitamin D deficiency: Code(s): E55.9 - Vitamin D deficiency, unspecified Category: Medical Plan: Patient is advised that his Vitamin D level remains low on his recent labs He admits to not taking his Vitamin D consistently before Have advised him to start back on his Vitamin D3 1000 units and to take it daily (6) Benign prostatic hyperplasia with lower urinary tract symptoms: Code(s): N40.1 - Benign prostatic hyperplasia with lower urinary tract symptoms Category: Medical Qualifiers: Lower urinary tract symptom detail: nocturia Qualified Code(s): N40.1 - Benign prostatic hyperplasia with lower urinary tract symptoms; R35.1 - Nocturia Plan: Continue Terazosin 10 mg Q HS and Tadalafil 5 mg QD Follow up with urology as scheduled (7) Obesity (BMI 30-39.9): Code(s): E66.9 - Obesity, unspecified Category: Medical Plan: Reinforced diet/exercise as tolerated/lose weight Plan Follow up in 6 months Orders: Orders Hemoglobin A1c 6 Months R73.01 - Impaired fasting glucose TSH reflex Free T4 6 Months E78.00 - Pure hypercholesterolemia, unspecified Vitamin D 25-OH Total 6 Months E55.9 - Vitamin D deficiency, unspecified Complete Blood Count Auto Diff 6 Months D64.9 - Anemia, unspecified Comprehensive [place]. Panel Fast 6 Months E78.00 - Pure hypercholesterolemia, unspecified Lipid Panel 6 Months E78.00 - Pure hypercholesterolemia, unspecified UA CC w/rflx Micro + Cult 6 Months R30.0 - Dysuria Uric Acid 6 Months M10.9 - Gout, unspecified
--- OUTSIDE RECORDS SUMMARY | 2024-12-19 16:11 | XMS_ITS | Referral Summary ---
Author Organization [facility] Address [address] [place] [address] Care Team Providers Care Food Service Assistant Name Role Phone José Miguel Walton Primary Care Provider [phone] Allergies No known active allergies Medications colchicine [...] Plan of Treatment Not on file Insurance [facility] MCR RE[employer] Care Teams Food Service Assistant Relationship Specialty Start Date End Date José Miguel Walton [address] [place] [address] [place] [address] PCP - General Internal Medicine 03/03/22
--- OUTSIDE RECORDS SUMMARY | 2024-12-19 16:11 | XMS_ITS | Encounter Summary ---
Author Organization [facility] Address [address] [place] [address] Care Team Providers Care Director Of Strategic Alliances Name Role Phone Unavailable Primary Care Provider Unavailabl e Prior Encounters Date Type Department Care Team Description 12/13/2020 Travel 12/13/2020 8:30 AM PDT Office Visit [facility] [address] [place] [address] Suad Griggs DMD 11/26/2020 Travel 11/26/2020 8:30 AM PDT Office Visit [facility] [address] [place] [address] Suad Griggs DMD 11/13/2020 Travel 11/13/2020 9:00 AM PDT Office Visit [facility] [address] [place] [address] Suad Griggs DMD Plan of Treatment Not [...] PDT Visit Diagnoses Not on file Insurance [facility]
--- OUTSIDE RECORDS SUMMARY | 2024-12-19 16:11 | XMS_ITS | Clinical Summary ---
Author Organization [facility] Address [address] [place] [address] Care Team Providers Care Food And Nutrition Services Supervisor Name Role Phone Unavailable Primary Care Provider Unavailabl e Allergies Active Allergy Reactions Criticality Noted Date Comments Vardenafil 02/16/2013 [place] miserable Medications atorvastatin (LIPITOR) 10 mg tablet [...] sleep apnea 04/15/2011 Overview (11/13/2020): 04/03/11: Mild RICAHRD by Watch-PAT study with pAHI=14.3, low SpO2=87% [...] rx. Immunizations Immunization Administration Dates Next Due [id number] 07/03/2009 Hep A, adult 02/28/2001 Hep A, [...] Most Recently Relevant to Health Maintenance [facility]
--- OUTSIDE RECORDS SUMMARY | 2024-12-19 16:11 | XMS_ITS | Clinical Summary ---
Author Organization [facility] Address [address] [place] [address] Care Team Providers Care Reinforced Steel Placing Supervisor Name Role Phone José Miguel Walton Primary Care Provider [phone] Allergies No known active allergies Medications colchicine [...] 06/05/2021, 03/28/2015, 02/27/2014, Additional history exists Insurance [facility] MCR REPLACE [employer] Care Teams Reinforced Steel Placing Supervisor Relationship Specialty Start Date End Date José Miguel Walton [address] [place] [address] [place] [address] PCP - General Internal Medicine 03/03/22
== END 2024-12-19 14:36 | disposition home or self-care (01) ==
LOC: HO.HMCH 13:39
PROVIDERS: PCP Internal Medicine; Visit Provider Internal Medicine
DX: I10 Essential (primary) hypertension (principal); M10.9 Gout, unspecified; E66.9 Obesity, unspecified; Z68.35 Body mass index [BMI] 35.0-35.9, adult; E03.9 Hypothyroidism, unspecified; R73.01 Impaired fasting glucose; E55.9 Vitamin D deficiency, unspecified; N40.1 Benign prostatic hyperplasia with lower urinary tract symptoms; R35.1 Nocturia

== ENCOUNTER → 2024-12-19 13:39 | Outpatient (BNVA) | payer BC, SELFPAY | PROVIDERS: PCP Internal Medicine; Visit Provider Internal Medicine | DX: I10 Essential (primary) hypertension (principal); M10.9 Gout, unspecified; E03.9 Hypothyroidism, unspecified; R73.01 Impaired fasting glucose; E55.9 Vitamin D deficiency, unspecified; N40.1 Benign prostatic hyperplasia with lower urinary tract symptoms; R35.1 Nocturia; E66.9 Obesity, unspecified; Z68.35 Body mass index [BMI] 35.0-35.9, adult; Z79.899 Other long term (current) drug therapy | CPT/HCPCS: 96127 ==

== ENCOUNTER 2025-03-12 10:06 | Outpatient (REF) | payer MEDICARE, SELFPAY ==
--- OUTSIDE RECORDS SUMMARY | 2025-03-12 10:51 | XMS_ITS | Clinical Summary ---
Author Organization [facility] Address [address] [place] [address] Care Team Providers Care Shift Supervisor Melting Name Role Phone Unavailable Primary Care Provider Unavailabl e Allergies Active Allergy Reactions Criticality Noted Date Comments Vardenafil 02/16/2013 [place] miserable Medications atorvastatin (LIPITOR) 10 mg tablet [...] Hypothyroidism 01/12/2017 Overview (11/13/2020): Basename Value Date/Time TSH 5.16 01/01/2017 Starting on levo 50 Gout 08/26/2016 Overview (11/13/2020): Basename Value Date/Time URIC ACID 6.9 07/09/2016 Atherosclerosis of aorta [...] itus 04/11/2004 Overview (11/13/2020): Basename Value Date/Time HGBA1C % 5.8 07/09/2016 Basename Value Date/Time ALBUMIN/CREATININE RATIO, UR 3.7 10/22/2015 Pt refuses statin rx. Immunizations Immunization Administration Dates Next Due [id number] 07/03/2009 Hep A, adult 02/28/2001 Hep A, [...] Maintenance Due Date Last Done Comments Dental Oral Exam 05/17/2021 11/13/2020 Dental X-Ray: Bitewings 05/17/2021 11/13/2020 Dental Prophylaxis 05/30/2021 11/26/2020 Dental X-Ray: Full Mouth 11/21/2023 11/19/2020, 10/28 Dental X-Ray: Panoramic 11/29/2023 11/27/2020 Procedures Procedure Name Priority Date/Time Associated Diagnosis Comments PROPHYLAXIS - ADULT Routine 11/26/2020 8 :30 AM PDT INTRAORAL - COMPREHENSIVE SERIES OF RADIOGRAPHIC IMAGES Routine 11/13/2020 9:00 AM PDT COMPREHENSIVE ORAL EVALUATION - NEW OR ESTABLISHED PATIENT Routine 11/13/2020 9:00 AM PDT from Last 3 Months or Most Recently Relevant to Health Maintenance [facility]
--- OUTSIDE RECORDS SUMMARY | 2025-03-12 10:52 | XMS_ITS | Clinical Summary ---
Author Organization [facility] Address [address] [place] [address] Care Team Providers Care Franchise Sales Director Name Role Phone José Miguel Walton Primary Care Provider [phone] Allergies No known active allergies Medications colchicine [...] Hypothyroidism 01/12/2017 Overview (03/03/2022): Basename Value Date/Time TSH 5.16 01/01/2017 Starting on levo 50 Basename Value Date/Time TSH 5.16 01/01/2017 Starting on levo 50 Gout 08/26/2016 Overview (03/03/2022): Basename Value Date/Time URIC ACID 6.9 07/09/2016 Basename Value Date/Time URIC ACID 6.9 07/09/2016 Atherosclerosis of aorta 11/26/2015 Overview (03/03/2022): CXR 316 CXR 316 Acute anterior uveitis of right eye 03/21/2015 [...] itus 04/11/2004 Overview (03/03/2022): Basename Value Date/Time HGBA1C % 5.8 07/09/2016 Basename Value Date/Time ALBUMIN/CREATININE RATIO, UR 3.7 10/22/2015 Pt refuses statin rx. Basename Value Date/Time HGBA1C % 5.8 07/09/2016 [...] Last Done Comments Basic Metabolic Panel 1949 Hemoglobin A1C 1950 Hepatitis C Screening 1950 Urine Microalbumin 1959 Zoster Vaccines (2 of 3) 10/23/2010 08/28/2010 DTaP,Tdap,and Td Vaccines (2 - Td or Tdap) 08/28/2020 08/28/2010, 06/08/2002 Ophthalmology Exam 04/02/2021 04/02/2020, 03/18/2009 RSV Vaccine (60+ years old and patients) (1 - 1-dose 75+ series) 01/03/2024 COVID-19 Vaccine ( season) 2024 12/03/2021, 06/24/2021, 10/24/2020, Additional history exists Alcohol/Substance Use Screening 08/30/2024 Depression Screening and Follow-Up 08/30/2024 Health Care Proxy Review 08/30/2024 Social Drivers of Health Annual Screening 08/30/2024 Influenza Vaccine (#1) 2025 , 06/17/2017, 07/03/2016, Additional history exists Hepatitis B Vaccines Aged Out 09/29/1999, 04/17/1999, 03/17/1999 No longer eligible based on patient's age to complete this topic Pneumococcal Vaccine: 50+ Years Completed 06/05/2021, 03/28/2015, 02/27/2014, Additional history exists Insurance [facility] MCR REPLACE [employer]ARP Care Teams Franchise Sales Director Relationship Specialty Start Date End Date José Miguel Walton [address] [place] [address] [place] [address] PCP - General Internal Medicine 03/03/22
[2025-03-13 06:24] LABS: Lyme Abs Screen <0.90 index
== END 2025-03-12 10:07 | disposition home or self-care (01) ==
LOC: HO.HMGCLDS 10:06
PROVIDERS: PCP Internal Medicine; Visit Provider Internal Medicine
DX: T14.8XXA Other injury of unspecified body region, initial encounter (principal); W57.XXXA Bitten or stung by nonvenomous insect and other nonvenomous arthropods, initial encounter
CPT/HCPCS: 36415; 86617; 86618

== ENCOUNTER 2025-06-13 09:03 | Outpatient (REF) | payer MEDICARE, SELFPAY ==
--- OUTSIDE RECORDS SUMMARY | 2025-06-13 09:52 | XMS_ITS | Encounter Summary ---
Author Organization [facility] Health Address [address] [place] [address] Care Team Providers Care Service Tester Name Role Phone Unavailable Primary Care Provider Unavailabl e Prior Encounters Date Type Department Care Team Description 12/13/2020 Travel 12/13/2020 8:30 AM PDT Office Visit [facility] [address] [place] [address] Suad Griggs DMD 11/26/2020 Travel 11/26/2020 8:30 AM PDT Office Visit [facility] [address] [place] [address] Suad Griggs DMD 11/13/2020 Travel 11/13/2020 9:00 AM PDT Office Visit [facility] [address] [place] [address] Suad Griggs DMD Plan of Treatment Not [...] PDT Visit Diagnoses Not on file Insurance [facility]
--- OUTSIDE RECORDS SUMMARY | 2025-06-13 09:52 | XMS_ITS | Clinical Summary ---
Author Organization [facility] Address [address] [place] [address] Care Team Providers Care Golf Sales Manager Name Role Phone José Miguel Walton Primary Care Provider [phone] Allergies No known active allergies Medications colchicine [...] patients) (1 - 1-dose 75+ series) 01/03/2024 Alcohol/Substance Use Screening 08/30/2024 Depression Screening and Follow-Up 08/30/2024 Health Care Proxy Review 08/30/2024 Social Drivers of Health Annual Screening 08/30/2024 COVID-19 Vaccine ( season) 2025 12/03/2021, 06/24/2021, 10/24/2020, Additional history exists Influenza Vaccine (#1) 2025 , 06/17/2017, 07/03/2016, Additional history exists Hepatitis B Vaccines Aged Out 09/29/1999, 04/17/1999, 03/17/1999 No longer eligible based on patient's age to complete this topic Pneumococcal Vaccine: 50+ Years Completed 06/05/2021, 03/28/2015, 02/27/2014, Additional history exists Insurance [facility] MCR REPLACE A[employer] Care Teams Golf Sales Manager Relationship Specialty Start Date End Date José Miguel Walton [address] [place] [address] [place] [address] PCP - General Internal Medicine 03/03/22
--- OUTSIDE RECORDS SUMMARY | 2025-06-13 09:52 | XMS_ITS | Clinical Summary ---
Author Organization [facility] Health Address [address] [place] [address] Care Team Providers Care Transitional Studies Instructor Name Role Phone Unavailable Primary Care Provider Unavailabl e Allergies Active Allergy Reactions Criticality Noted Date Comments Vardenafil 02/16/2013 [place] miserable Medications atorvastatin (LIPITOR) 10 mg tablet [...] rx. Immunizations Immunization Administration Dates Next Due [id number] 07/03/2009 Hep A, adult 02/28/2001 Hep A, [...] Most Recently Relevant to Health Maintenance [facility]
[2025-06-13 10:15] LABS: MANUAL DIFF FLAG NO
[2025-06-13 10:17] LABS: Hematocrit 39.0 % (42.0-52.0); Hemoglobin 13.2 g/dl (14.0-18.0); Imm Gran Abs Auto 0.02 X10*3/uL (0.00-0.03); Imm Gran Pct Auto 0.3 % (0.0-0.4); Lymphocytes Absolute Auto 2.1 X10*3/uL (1.2-4.9); Mean Corpuscular HGB Conc 33.8 g/dl (31.0-36.0); Mean Corpuscular Hemoglobin 31.2 pg (27.0-33.0); Mean Corpuscular Volume 92.2 fL (80.0-98.0); NRBC Abs Auto 0.000 X10*3/uL (0.0-0.012); NRBC Pct Auto 0.0 /100WBC (0.0-0.2); Platelet Count 223 X10*3/uL (160-400); Red Blood Count 4.23 X10*6/uL (4.60-5.80); White Blood Count 7.5 X10*3/uL (4.8-10.8)
[2025-06-13 10:23] LABS: Appearance Urine Clear; Glucose Urine UA Negative (Negative); PH 6.5 (5.0-9.0); Specific Gravity - Urine 1.015 (1.005-1.025)
[2025-06-13 11:15] LABS: Alanine Aminotransferase 17 U/L (0-40); Albumin Level 4.1 g/dL (3.5-5.0); Alkaline Phosphatase 44 U/L (39-117); Anion Gap 10 (12-20); Aspartate Amino Transferase 26 U/L (5-37); Blood Urea Nitrogen 20 mg/dL (9-16); Calcium 9.0 mg/dL (8.4-10.2); Carbon Dioxide 27 mmol/L (22-29); Chloride 105 mmol/L (96-108); Cholesterol 114 mg/dL (<200); Estimated Glomerular Filt Rate > 60; HDL Cholesterol 44 mg/dL (>40); Potassium 4.4 mmol/L (3.3-5.1); Sodium 138 mmol/L (135-145); Total Protein 6.7 g/dL (6.5-8.0); Triglycerides 143 mg/dL (<150); Uric Acid 8.7 mg/dL (3.4-7.0)
== END 2025-06-13 09:04 | disposition home or self-care (01) ==
LOC: HO.HMGCLDS 09:03
PROVIDERS: PCP Internal Medicine; Visit Provider Internal Medicine
DX: R30.0 Dysuria (principal); R73.01 Impaired fasting glucose; E55.9 Vitamin D deficiency, unspecified; E78.00 Pure hypercholesterolemia, unspecified; M10.9 Gout, unspecified; D64.9 Anemia, unspecified
CPT/HCPCS: 36415; 80053; 80061; 81003; 82306; 83036; 84443; 84550; 85025

== ENCOUNTER 2025-06-20 09:43 | Outpatient (AMB) | payer BC, SELFPAY ==
[2025-06-20 09:44] VITALS: BP 130/60; PULSE 57; TEMP 36.2; O2SAT 98; BMI 35.1
--- NOTE | 2025-06-20 09:44 | MHC.PC.OV ---
Vital Signs 06/20/25 09:44 Height 5 ft 10 in Weight 244 lb 6 oz BMI 35.1 BP 130/60 Blood Pressure Location Lt brachial Position Sitting Pulse 57 Pulse Source Pulse Oximeter Temp 97.1 F Temp Source Temporal Artery Scan Pulse Oximetry (%) 98 Oxygen Delivery Method Room Air Intake Visit Reasons: 6 month f/u Php Architect Required: No Pantry Steward/Stewardess: Not Required per policy Accompanied by: Self / Same As Patient Allergies No Known Allergies Allergy (Verified 06/20/25 10:06) Medication List - Last Reconciled 06/20/25 by Timbo Hanson MD aspirin (Adult Low Dose Aspirin) 81 mg PO .weekly cholecalciferol (vitamin D3) 25 mcg PO .3 times a week colchicine 0.6 mg PO DAILY PRN hydrochlorothiazide 25 mg PO DAILY levothyroxine 75 mcg PO DAILY lisinopril 20 mg PO BID metoprolol succinate ER 50 mg PO DAILY tadalafil 5 mg PO DAILY 90 days terazosin 10 mg PO BEDTIME 90 days bkstlzfq-afgx-aonvx-oreg-capry 100 mg-150 mg- 50 mg-150 mg caps PO 2XW Tobacco use date assessed: 06/20/25 Fall risk assessment: No Falls in past year Last assessed Fall Risk: 06/20/25 Dental Screening Dental Screen Date: 06/20/25 HPI 6 month f/u HPI Details Patient comes in today for his follow up visit Patient states that he feels okay States that his previous on and off left-sided sciatica, which was bothering him a few months ago, seems to have calmed down a lot lately He denies any headaches or dizziness Denies any chest pains, no SOB No nausea/vomiting, no abdominal pain No change in bowel habits noted Adds that he's had problems sleeping at night and/or sleeping through the night for the past few months and has been taking some OTC Sleep aids like Tylenol PM, which he states helps He had his follow up labs done last week - to discuss his results [facility] Medical History Obesity (BMI 30-39.9) Benign prostatic hyperplasia with lower urinary tract symptoms Vitamin D deficiency Acquired hypothyroidism Essential hypertension Impaired fasting glucose Obesity Gout Hyperlipidemia Surgical History History of surgery of head History of dental surgery History of hernia repair Family History Mother No problems noted. Father No problems noted. Social History Housing: House Patient Tobacco Use Status: Former Tobacco user Tobacco use type: Cigarette e-Cigarette/Vaping Use: Never Used Second Hand Smoke Exposure: No service: No Current occupational status: retired Cognitive needs: No Hearing needs: No Vision needs: Yes (glasses) Questionnaire PHQ-9 Over the last 2 weeks, how often have you been bothered by any of the following problems? 1. Little interest or pleasure in doing things: several days 2. Feeling down, depressed, or hopeless: several days 3. Trouble falling or staying asleep, or sleeping too much: more than half the days 4. Feeling tired or having little energy: more than half the days 5. Poor appetite or overeating: more than half the days 6. Feeling bad about yourself - or that you are a failure or have let yourself or your family down: several days 7. Trouble concentrating on things, such as reading the newspaper or watching television: not at all 8. Moving or speaking so slowly that other people could have noticed. Or the opposite - being so fidgety or restless that you have been moving around a lot more than usual: not at all 9. Thoughts that you would be better off or of hurting yourself in some way: not at all Total score: 9 Depression Screening Interpretation: Positive Depression Screening Follow-up: Follow-up Visit Requested Depression Screening Done: Yes 70265 - PHQ-9 Billing: Yes Source: Developed by Drs. Hermilo Martinez, Afsaneh Titus, Ed Bello and colleagues, with an educational kailey from [employer]. Thrive Questionnaire Date Thrive assessed: 12/19/24 Currently or been in a relationship where the following occur: No concerns reported THRIVE Score: 0 AUDIT C Alcohol Use Questionnaire (AUDIT-C) 1. How often do you have a drink containing alcohol?: Monthly or less 2. How many drinks containing alcohol do you have on a typical day when you are drinking?: 1 or 2 3. How often do you have six or more drinks on one occasion?: Never Total Score: 1 Score Reviewed/Action Taken: Yes DEYVI-7 AMB Questionnaire DEYVI-7 Date DEYVI - 7 assessed: 12/19/24 Source: Developed by Drs. Hermilo Martinez, Afsaneh Titus, Ed Bello and colleagues, with an educational kailey from [employer]. Review of Systems Const Denies chills, Reports difficulty sleeping (taking OTC sleep aids at times), Denies fatigue, Denies fever(s) and Denies headache(s) ENT Denies dysphagia, Denies dizziness, Denies otalgia, Denies headache(s), Denies neck pain, Denies odynophagia and Denies sore throat Card Denies chest pain, Denies palpitations and Denies dyspnea Resp Denies chest congestion, Denies cough and Denies dyspnea GI Denies abdominal pain, Denies constipation, Denies dysphagia, Denies heartburn, Denies diarrhea, Denies nausea, Denies odynophagia and Denies vomiting Denies difficulty urinating, Denies dysuria, Reports nocturia (better with Rx) and Denies urinary frequency Musc Reports back pain (on and off) and Denies neck pain Skin/Breast Denies rash Neuro Denies dizziness and Denies headache(s) Endo Denies fatigue and Denies palpitations Physical exam (Primary Care) Vital Signs: Last Vital Signs Temp 97.1 F 06/20/25 09:44 Pulse 57 06/20/25 09:44 BP 130/60 06/20/25 09:44 Pulse Ox 98 06/20/25 09:44 Oxygen Delivery Method Room Air 06/20/25 09:44 BMI result Body Mass Index 35.1 Tobacco/Smoking Status: Tobacco use Status Tobacco use date assessed 06/20/25 06/20/25 09:57 Patient Tobacco Use Status Former Tobacco user 06/20/25 09:57 Tobacco use type Cigarette 06/20/25 09:57 e-Cigarette/Vaping Use Never Used 06/20/25 09:57 PHQ-9: PHQ-9 Score PHQ-9: Total score 9 06/20/25 09:57 Depression Screening Interpretation: Positive Depression Screening Follow-up: Follow-up Visit Requested Thrive Assessment: Date of Thrive Assessment Date Thrive assessed 12/19/24 06/20/25 09:57 Currently or been in a relationship where the following occur: No concerns reported Const General: no acute distress and alert HENMT Ears: TM's normal bilaterally and EAC's normal Throat: Yes posterior oropharynx normal and Yes tonsils normal (no TP congestion) Neck Neck: Yes supple and No lymphadenopathy Thyroid: Thyroid normal Resp Auscultation: clear to auscultation bilaterally, no rales and no wheezes Cardio Rate: regular rate Rhythm: regular rhythm Heart sounds: no murmurs GI Palpation (GI): Soft to palpation and nontender Auscultation: normal bowel sounds General: Yes no CVA tenderness Back/Spine/Pelvis Back: no CVA tenderness Thoracic/Lumbar Spine: lumbar spinal tenderness (mild) Skin Rashes: no rashes Extrem General: Yes no clubbing, cyanosis or edema Results Reviewed Results Reviewed: Laboratory Tests 06/13/25 06/13/25 09:15 09:45 WBC 7.5 Hgb 13.2 L Hct 39.0 L Plt Count 223 Sodium 138 Potassium 4.4 Creatinine 1.02 Estimated GFR > 60 Fasting Glucose 103 H Hemoglobin A1c % 5.7 Uric Acid 8.7 H Calcium 9.0 AST 26 ALT 17 Triglycerides 143 Cholesterol 114 LDL Cholesterol, Calc 42 HDL Cholesterol 44 25-OH Vitamin D Total 33.6 TSH 3.01 Ur Specific [place] 1.015 Urine Protein Negative Urine Glucose (UA) Negative Urine Blood Negative Urine Nitrite Negative Ur Leukocyte Esterase Negative Coding Level of Care Code Est Pt Level 4 (78482) Diagnoses Essential hypertension I10 Gout, unspecified cause, unspecified chronicity, unspecified site M10.9 Gout site: unspecified site Gout etiology: unspecified cause Chronicity: unspecified Acquired hypothyroidism E03.9 Impaired fasting glucose R73.01 Vitamin D deficiency E55.9 Benign prostatic hyperplasia with nocturia N40.1; R35.1 Lower urinary tract symptom detail: nocturia Insomnia, unspecified type G47.00 Insomnia type: unspecified Obesity (BMI 30-39.9) E66.9 Additional Codes PHQ-9 - 28789 - PHQ-9 Billing: Yes ([id number]) Assessment & Plan Assessment & Plan (1) Essential hypertension: Code(s): I10 - Essential (primary) hypertension Category: Medical Plan: Reinforced low sodium diet - goal is systolic BP of 120 to 130 mm or less Continue Lisinopril 20 mg QD, Metoprolol ER 50 mg QD and HCTZ 25 mg QD Results of his labs done last week reviewed and discussed with patient Will recheck his labs and fasting lipids in 6 months AND again in 1 year for follow up Advised patient that we will reach out to him in 6 months if his labs then reveal any unusual findings or results (2) Gout: Code(s): M10.9 - Gout, unspecified Category: Medical Qualifiers: Gout site: unspecified site Gout etiology: unspecified cause Chronicity: unspecified Qualified Code(s): M10.9 - Gout, unspecified Plan: His serum uric acid level appears to have gone up from previous on his recent labs and is now at 8.7 mg/dl Patient denies any recent flare up of gout Reinforced low purine diet Continue Colchicine 0.6 mg QD (3) Acquired hypothyroidism: Code(s): E03.9 - Hypothyroidism, unspecified Category: Medical Plan: His TFTs were normal on his recent labs Continue Levothyroxine 75 mcg QD (4) Impaired fasting glucose: Code(s): R73.01 - Impaired fasting glucose Category: Medical Plan: His FBS was slightly elevated at 103 mg/dl on his labs done last week HgbA1c was normal at 5.7% (was previously at 5.8% back in May 2024) Reinforced low calorie/low carb diet (5) Vitamin D deficiency: Code(s): E55.9 - Vitamin D deficiency, unspecified Category: Medical Plan: Continue Vitamin D3 1000 units daily (6) Benign prostatic hyperplasia with lower urinary tract symptoms: Code(s): N40.1 - Benign prostatic hyperplasia with lower urinary tract symptoms Category: Medical Qualifiers: Lower urinary tract symptom detail: nocturia Qualified Code(s): N40.1 - Benign prostatic hyperplasia with lower urinary tract symptoms; R35.1 - Nocturia Plan: Continue Terazosin 10 mg Q HS and Tadalafil 5 mg QD Follow up with urology as scheduled (7) Insomnia: Code(s): G47.00 - Insomnia, unspecified Category: Medical Qualifiers: Insomnia type: unspecified Qualified Code(s): G47.00 - Insomnia, unspecified Plan: Sleep hygiene discussed Continue with OTC Sleep aids PRN for now as they have been helping (8) Obesity (BMI 30-39.9): Code(s): E66.9 - Obesity, unspecified Category: Medical Plan: Reinforced diet/exercise as tolerated/lose weight Plan Follow up in 1 year Orders: Orders Hemoglobin A1c 1 Year R73.01 - Impaired fasting glucose Complete Blood Count Auto Diff 1 Year D64.9 - Anemia, unspecified Lipid Panel 1 Year E78.00 - Pure hypercholesterolemia, unspecified Thyroid Stimulating Hormone 1 Year E03.9 - Hypothyroidism, unspecified UA CC w/rflx Micro + Cult 1 Year R30.0 - Dysuria Vitamin D 25-OH Total 1 Year E55.9 - Vitamin D deficiency, unspecified Uric Acid 1 Year M10.9 - Gout, unspecified Free T4 (Free Thyroxine) 6 Months E03.9 - Hypothyroidism, unspecified UA CC w/rflx Micro + Cult 6 Months R30.0 - Dysuria Uric Acid 6 Months M10.9 - Gout, unspecified Comprehensive [place]. Panel Fast 1 Year E78.00 - Pure hypercholesterolemia, unspecified Free T4 (Free Thyroxine) 1 Year E03.9 - Hypothyroidism, unspecified Vitamin B12 and Folate 1 Year E53.8 - Deficiency of other specified B group vitamins Thyroid Stimulating Hormone 6 Months E03.9 - Hypothyroidism, unspecified Comprehensive [place]. Panel Fast 6 Months E78.00 - Pure hypercholesterolemia, unspecified Lipid Panel 6 Months E78.00 - Pure hypercholesterolemia, unspecified Hemoglobin A1c 6 Months R73.01 - Impaired fasting glucose
--- OUTSIDE RECORDS SUMMARY | 2025-06-20 11:24 | XMS_ITS | Clinical Summary ---
Author Organization [facility] Health Address [address] [place] [address] Care Team Providers Care Gas Operator Name Role Phone Unavailable Primary Care Provider Unavailabl e Allergies Active Allergy Reactions Criticality Noted Date Comments Vardenafil 02/16/2013 [place] miserable Medications atorvastatin (LIPITOR) 10 mg tablet [...] rx. Immunizations Immunization Administration Dates Next Due [id number] 07/03/2009 Hep A, adult 02/28/2001 Hep A, [...] Most Recently Relevant to Health Maintenance [facility]
--- OUTSIDE RECORDS SUMMARY | 2025-06-20 11:24 | XMS_ITS | Clinical Summary ---
Author Organization [facility] Address [address] [place] [address] Care Team Providers Care Net Finisher Name Role Phone José Miguel Walton Primary Care Provider [phone] Allergies No known active allergies Medications colchicine [...] 06/05/2021, 03/28/2015, 02/27/2014, Additional history exists Insurance [facility] [employer] Care Teams Net Finisher Relationship Specialty Start Date End Date José Miguel Walton [address] [place] [address] [place] [address] PCP - General Internal Medicine 03/03/22
--- OUTSIDE RECORDS SUMMARY | 2025-06-20 11:24 | XMS_ITS | Encounter Summary ---
Author Organization [facility] Health Address [address] [place] [address] Care Team Providers Care Associate Broker Name Role Phone Unavailable Primary Care Provider Unavailabl e Prior Encounters Date Type Department Care Team Description 12/13/2020 Travel 12/13/2020 8:30 AM PDT Office Visit [facility] [address] [place] [address] Suad Griggs DMD 11/26/2020 Travel 11/26/2020 8:30 AM PDT Office Visit [facility] [address] [place] [phone] Suad Griggs DMD 11/13/2020 Travel 11/13/2020 9:00 AM PDT Office Visit [facility] [address] [place] [address] Suad Griggs DMD Plan of Treatment Not [...] PDT Visit Diagnoses Not on file Insurance [facility]
== END 2025-06-20 11:08 | disposition home or self-care (01) ==
LOC: HO.HMCH 09:43
PROVIDERS: PCP Internal Medicine; Visit Provider Internal Medicine
DX: I10 Essential (primary) hypertension (principal); M10.9 Gout, unspecified; E66.9 Obesity, unspecified; Z68.35 Body mass index [BMI] 35.0-35.9, adult; E03.9 Hypothyroidism, unspecified; R73.01 Impaired fasting glucose; E55.9 Vitamin D deficiency, unspecified; N40.1 Benign prostatic hyperplasia with lower urinary tract symptoms; R35.1 Nocturia; G47.00 Insomnia, unspecified

== ENCOUNTER → 2025-06-20 09:43 | Outpatient (BNVA) | payer BC, SELFPAY | PROVIDERS: PCP Internal Medicine; Visit Provider Internal Medicine | DX: I10 Essential (primary) hypertension (principal); M10.9 Gout, unspecified; E03.9 Hypothyroidism, unspecified; R73.01 Impaired fasting glucose; E55.9 Vitamin D deficiency, unspecified; N40.1 Benign prostatic hyperplasia with lower urinary tract symptoms; R35.1 Nocturia; G47.00 Insomnia, unspecified; E66.9 Obesity, unspecified; Z68.35 Body mass index [BMI] 35.0-35.9, adult; Z79.82 Long term (current) use of aspirin | CPT/HCPCS: 96127 ==

== ENCOUNTER 2025-08-07 12:33 | Outpatient (AMB) | payer BC, SELFPAY ==
[2025-08-07 12:55] VITALS: BMI 34.0
--- NOTE | 2025-08-07 12:55 | A.OFFVIS_ITS ---
Vital Signs 08/07/25 12:55 Height 5 ft 10 in Weight 237 lb BMI 34.0 Intake Visit Reasons: Elias. toe nails cuts and lack of sensitivity Intake Note: Oliver is a 75 year old male who presents today as a new patient for bilateral toe nails cuts and lack of sensitivity. Patient reports that he is unable to trim his toe nails properly and he is interested in getting his nails trimmed down. The numbness in his toes has been going on for about 5 years and this is an occasional however he is not experiencing any numbness at this time. He notices the numbness more at night when he is laying down. Allergies No Known Allergies Allergy (Verified 08/07/25 12:56) HPI HPI Elias. toe nails cuts and lack of sensitivity: Details: 75-year-old male with past medical history of prediabetes, hypertension, hypothyroidism, presents for bilateral foot numbness and ingrown toenail left foot. He states the numbness has been going on for 5 years, is worse at night and when sitting in a chair. He also notes severe difficulty cutting his nails due to back pain. Also endorses thigh cramping worse than night, denies cramping to his legs when walking. [facility] Medical History Obesity (BMI 30-39.9) Benign prostatic hyperplasia with lower urinary tract symptoms Vitamin D deficiency Acquired hypothyroidism Essential hypertension Impaired fasting glucose Obesity Gout Hyperlipidemia Surgical History History of surgery of head History of dental surgery History of hernia repair Family History Mother No problems noted. Father No problems noted. Social History Housing: House Patient Tobacco Use Status: Former Tobacco user Tobacco use type: Cigarette e-Cigarette/Vaping Use: Never Used Second Hand Smoke Exposure: No service: No Current occupational status: retired Cognitive needs: No Hearing needs: No Vision needs: Yes (glasses) Review of Systems Const All systems reviewed & are unremarkable except as noted in HPI and below Physical Exam Vital Signs: BMI result Body Mass Index 34.0 Extrem Other: *Bilateral Lower Extremity Focused Diabetic Foot Exam Vascular: DP/PT 2/4, CFT<3s to digits, TG warm to cool, no pedal edema, pedal hair absent Derm: Skin: Dry waxy skin bilateral feet Interdigital spaces: Clear, no maceration or fungal infection. Nails: Thickened elongated dystrophic discolored toenails x 10 with subungual debris. Left hallux incurvated, medial border ingrown. No erythema or clinical signs of infection. Neuro: Ventura-trixie monofilament (10g) test 9/10 intact to right foot, 6/10 intact to left foot. Msk: Deformities: No evidence of hammertoes, bunions, Charcot changes, or other structural abnormalities. Muscle strength: 5/5 in all muscle groups. Gait: Normal, no antalgic or steppage gait observed. Footwear Assessment: Shoes inspected; appropriate fit, no excessive wear, or foreign objects noted. Office Procedures AMB Debridement/Avulsion Podia Details: Procedure: Nail debridement Location: 10 nails, bilateral feet Anesthesia: N/A Description: The affected toenails were cleansed with an antiseptic solution. Using sterile nail nippers and a rotary radha, dystrophic and mycotic nail material was carefully debrided and reduced in thickness. Care was taken to avoid trauma to the surrounding skin and nail bed. All debris was removed as tolerated. The area was inspected for signs of infection or ulceration. Patient tolerated the procedure well without complications. Tolerance: Patient tolerated procedure well, no immediate complications. Class B findings as per physical exam findings above. The patient has a diagnosis of pre-diabetes mellitus and presents with elongated, thickened toenails. The patient also has peripheral neuropathy and vascular disease findings with absent pedal hair and skin dystrophic changes. The patient is at increased risk for complications such as ulceration, infection, and difficulty with self-care. Debridement of elongated toenails is medically necessary to prevent development of pressure-related lesions, reduce risk of secondary infection, and maintain foot health in high-risk comorbidities. [id number] of Nail 6+ Procedure code (CPT) selection complete Assessment & Plan Assessment & Plan (1) Peripheral neuropathy: Code(s): G62.9 - Polyneuropathy, unspecified Category: Medical Qualifiers: Peripheral neuropathy type: polyneuropathy, other Qualified Code(s): G62.89 - Other specified polyneuropathies Plan: * We will workup source of neuropathy. Ddx includes diabetes however the patient is pre-diabetic, spinal etiology due to positional changes worsening the neuropathy * Rx vitamin B * Rx EMG NCV (2) Paronychia of great toe, left: Code(s): L03.032 - Cellulitis of left toe Category: Medical Plan: * Performed slant back procedure left foot (3) Tinea unguium: Code(s): B35.1 - Tinea unguium Category: Medical Plan: * Debrided elongated thickened nails x 10 Orders: Orders Vitamin B12 Today - Other specified polyneuropathies NE electromyogram (EMG) Today - Other specified polyneuropathies NE nerve conduction velocity Today - Other specified polyneuropathies AMB Debridement/Avulsion Podiatry Today B35.1 - Tinea unguium Coding Level of Care Code New Pt Level 4 (89017) Diagnoses Other polyneuropathy Peripheral neuropathy type: polyneuropathy, other Paronychia of great toe, left L03.032 Tinea unguium B35.1 CPT Codes Skin Debridement - CPT: 43925-Jbbdxtznknh of Nail 6+ ([id number]) Time Spent (min) 35
== END 2025-08-07 13:40 | disposition home or self-care (01) ==
LOC: HO.HPODS 12:34
PROVIDERS: PCP Internal Medicine; Visit Provider Student in an Organized Health Care Education/Training Program
DX: G62.89 Other specified polyneuropathies (principal); L03.032 Cellulitis of left toe; B35.1 Tinea unguium
CPT/HCPCS: 11721; 99204

== ENCOUNTER → 2025-08-07 12:33 | Outpatient (BNVA) | payer BC, SELFPAY | PROVIDERS: PCP Internal Medicine; Visit Provider Student in an Organized Health Care Education/Training Program | DX: B35.1 Tinea unguium (principal); L03.032 Cellulitis of left toe; G62.89 Other specified polyneuropathies | CPT/HCPCS: 11721 ==